=== PATIENT | male | born 1950 | race Caucasian/White ===

== ENCOUNTER 2016-04-12 09:20 | Outpatient (CLI) | payer MEDICARE, OTHER | END 2016-04-12 09:21 | disposition home or self-care (01) | DX: R74.8 Abnormal levels of other serum enzymes (principal); R73.9 Hyperglycemia, unspecified; E78.5 Hyperlipidemia, unspecified; E04.1 Nontoxic single thyroid nodule ==

== ENCOUNTER 2017-10-09 08:00 | Outpatient (CLI) | payer MEDICARE, OTHER ==
[2017-10-09 12:28] LABS: BASOPHILS # (AUTO) 0.1 10^3/uL (0.0-0.1); EOSINOPHILS # (AUTO) 0.2 10^3/uL (0.0-0.7); EOSINOPHILS % (AUTO) 4.3 %; LYMPHOCYTES # (AUTO) 1.4 10^3/uL (1.5-3.5); LYMPHOCYTES % (AUTO) 25.5 %; MEAN CORPUSCULAR VOLUME 90.9 fL (80.0-94.0); MEAN PLATELET VOLUME 9.6 fL (7.4-11.4); MONOCYTES # (AUTO) 0.4 10^3/uL (0.0-1.0); NEUTROPHILS # (AUTO) 3.4 10^3/uL (1.5-6.6); NEUTROPHILS % (AUTO) 61.2 %; PLT - PLATELET COUNT 235 10^3/uL (130-450); RED BLOOD COUNT 5.32 10^6/uL (4.70-6.10); RED CELL DISTRIBUTION WIDTH 14.1 % (12.0-15.0); WHITE BLOOD COUNT 5.5 x10^3/uL (4.8-10.8)
[2017-10-09 13:16] LABS: ALBUMIN/GLOBULIN RATIO 1.3 (1.0-2.2); ALKALINE PHOSPHATASE 49 IU/L (42-121); ALT ALANINE AMINOTRANSFERASE 31 IU/L (10-60); AST ASPARTATE AMINOTRANSFERASE 18 IU/L (10-42); BILIRUBIN,TOTAL 1.6 mg/dL (0.2-1.0); BUN - BLOOD UREA NITROGEN 18 mg/dL (6-20); CALCIUM 9.5 mg/dL (8.5-10.3); CARBON DIOXIDE - CO2 29 mmol/L (21-32); CHLORIDE 106 mmol/L (101-111); CHOL/HDL RATIO 5.1 (<5.0); CHOLESTEROL 239 mg/dL; CREATININE 0.8 mg/dL (0.6-1.2); GFR - MDRD 96 (>89); GLUCOSE 94 mg/dL (70-100); HDL CHOLESTEROL 47 mg/dL; LDL CHOLESTEROL,CALCULATED 165 mg/dL; LDL/HDL RATIO 3.5 (<3.6); SODIUM 140 mmol/L (135-145); TOTAL PROTEIN 7.2 g/dL (6.7-8.2); VLDL CHOLESTEROL 27 mg/dL
== END 2017-10-09 08:01 ==
LOC: LAB.WCP 08:00
PROVIDERS: ATTEND Physician Assistant
DX: I10 Essential (primary) hypertension (principal); Z12.5 Encounter for screening for malignant neoplasm of prostate; E78.5 Hyperlipidemia, unspecified
CPT/HCPCS: 36415; 80053; 80061; 85025; G0103; 83721; 84153

== ENCOUNTER 2017-10-21 08:00 | Outpatient (CLI) | payer MEDICARE, OTHER ==
[2017-10-21 19:59] LABS: PSA FREE 0.383 ng/mL (0.16-2.81); PSA TOTAL 3.162 ng/mL (0.000-2.000)
== END 2017-10-21 08:01 ==
LOC: LAB.WCP 08:00
PROVIDERS: ATTEND Physician Assistant
DX: R97.20 Elevated prostate specific antigen [PSA] (principal)
CPT/HCPCS: 36415; 84154

== ENCOUNTER 2018-04-24 14:29 | Outpatient (CLI) | payer MEDICARE, OTHER ==
--- NOTE | 2018-04-26 08:54 | XRAY Report ---
Reason: HIP PAIN Procedure Date: 04/24/2018 Accession Number: [id number] / [id number] Procedure: WCP - Hip 1 View LT CPT Code: FULL RESULT: EXAM: LEFT HIP RADIOGRAPHY EXAM DATE: 04/24/2018 02:46 PM. CLINICAL HISTORY: Left groin/hip pain after sledding injury. COMPARISON: ABDOMEN/PELVIS W/ 04/28/2013 5:56 PM. TECHNIQUE: 2 views. FINDINGS: Bones: Normal. No fractures or bone lesion. Joints: No dislocation. The hip joint space is preserved. There are degenerative disk changes of the partially visualized lower lumbar spine. Soft Tissues: Normal. No soft tissue swelling. There are multiple calcified phleboliths in the pelvis. IMPRESSION: No acute osseous abnormality of the left hip. RAD[facility]
== END 2018-04-24 14:30 | disposition home or self-care (01) ==
LOC: DI.WCP 14:29
PROVIDERS: ATTEND Nurse Practitioner
DX: M25.552 Pain in left hip (principal)

== ENCOUNTER 2018-05-01 14:17 | Outpatient (CLI) | payer MEDICARE, OTHER ==
--- NOTE | 2018-05-01 22:26 | CT Report ---
Reason: FRACTURE OF UNSPECIFIED PARTS, HIP JOINT PAIN, LEF Procedure Date: 05/01/2018 Accession Number: [id number] / [id number] Procedure: CT - PELVIS WO CPT Code: FULL RESULT: EXAM: CT BONY PELVIS WITHOUT CONTRAST EXAM DATE: 05/01/2018 02:30 PM. CLINICAL HISTORY: Left hip pain COMPARISON: Plain film 04/24/2018 HIP 1 VIEW LT 04/24/2018 2:35 PM. TECHNIQUE: Thin-section axial images were acquired of the pelvis without contrast. Post-processing: Coronal and sagittal reformats. Other: None. In accordance with CT protocol optimization, one or more of the following dose reduction techniques were utilized for this exam: automated exposure control, adjustment of mA and/or KV based on patient size, or use of iterative reconstructive technique. FINDINGS: Bones: No fracture or bone lesion. Sacroiliac Joints: No widening, erosions, or sclerosis. Symphysis Pubis: Unremarkable. Right Hip: Mild osteoarthritis. Left Hip: Mild osteoarthritis. Musculature: Normal. No fatty atrophy. Pelvic Cavity: Colonic diverticulosis, without CT evidence of diverticulitis. Other: No lymphadenopathy. No free air or free fluid. The other visualized soft tissues are unremarkable. IMPRESSION: Mild osteoarthritis. No evidence of fracture. [facility] ADDENDUM: 05/02/18 21:57 Films are reviewed. There are subtle nondisplaced fractures of the left superior and inferior pubic rami. No femoral fracture is identified.
== END 2018-05-01 14:18 | disposition home or self-care (01) ==
LOC: DI 14:17
PROVIDERS: ATTEND Nurse Practitioner
DX: S32.592A Other specified fracture of left pubis, initial encounter for closed fracture (principal); M16.11 Unilateral primary osteoarthritis, right hip
CPT/HCPCS: 72192

== ENCOUNTER 2018-06-05 09:48 | Outpatient (CLI) | payer MEDICARE, OTHER ==
--- NOTE | 2018-06-05 12:18 | XRAY Report ---
Reason: FRACTURE OF UNSP PARTS OF LYMBOSACRAL SPINE PELV Procedure Date: 06/05/2018 Accession Number: [id number] / [id number] Procedure: WCP - Pelvis 1 View CPT Code: FULL RESULT: EXAM: PELVIS RADIOGRAPHY EXAM DATE: 06/05/2018 10:01 AM. CLINICAL HISTORY: Fracture of unspecified parts of lumbosacral spine/pelvis. COMPARISON: HIP 1 VIEW LT 04/24/2018 2:35 PM PELVIS W/O 05/01/2018 2:31 PM. TECHNIQUE: 1 view. FINDINGS: Bones: There is a known superior pubic ramus and acetabular fracture on the left, this remains visible with periosteal reaction formation suggested in the region of the acetabulum. No other fractures. Joints: The visualized hip, pubis symphysis, and sacroiliac joints are congruent. No subluxation. Soft Tissues: Normal. No soft tissue swelling. IMPRESSION: Known fracture, acceptable alignment and suggestion of ongoing healing. [facility]
== END 2018-06-05 09:49 | disposition home or self-care (01) ==
LOC: DI.WCP 09:48
PROVIDERS: ATTEND Nurse Practitioner
DX: S32.592A Other specified fracture of left pubis, initial encounter for closed fracture (principal); S32.402A Unspecified fracture of left acetabulum, initial encounter for closed fracture
CPT/HCPCS: 72170

== ENCOUNTER 2019-12-08 05:07 | Emergency (ER) | payer MEDICARE, OTHER ==
--- NOTE | 2019-12-08 05:12 | ED Physician Documentation ---
History of Present Illness - Stated complaint Stated Complaint: HBP - History obtained from History obtained from: Patient - Additonal information Additional information: Patient is a 69-year-old male who is complaining of chest pain and shortness of breath and palpitations lightheadedness and diaphoresis. Also complaining of hypertension.Patient denies any history of OH or stroke or pulmonary embolism or DVT or any arrhythmias such as atrial fibrillation reports his symptoms started just prior to arrival. Review of Systems Constitutional: reports: Reviewed and negative Eyes: reports: Reviewed and negative Ears: reports: Reviewed and negative Nose: reports: Reviewed and negative Throat: reports: Reviewed and negative Cardiac: reports: Chest pain / pressure, Palpitations Respiratory: reports: Dyspnea GI: reports: Reviewed and negative : reports: Reviewed and negative Skin: reports: Reviewed and negative Musculoskeletal: reports: Reviewed and negative Neurologic: reports: Reviewed and negative Psychiatric: reports: Reviewed and negative Endocrine: reports: Reviewed and negative Immunocompromised: reports: Reviewed and negative PD PAST MEDICAL HISTORY - Past Medical History Cardiovascular: Hypertension, High cholesterol Respiratory: COPD Endocrine/Autoimmune: None GI: GERD, Colon polyps : None HEENT: None, Other Psych: None Musculoskeletal: Osteoarthritis Derm: None - Past Surgical History Past Surgical History: Yes HEENT: Other - Present Medications Home Medications: Ambulatory Orders Medication Instructions Recorded Confirmed Lisinopril 20 mg PO ONCEDAILY 04/27/13 12/08/19 Omeprazole [Prilosec] 20 mg PO ONCEDAILY 04/27/13 12/08/19 - Allergies Allergies/Adverse Reactions: Allergies Allergy/AdvReac Type Severity Reaction Status Date / Time Sulfa (Sulfonamide AdvReac Mild Itching Verified 12/08/19 05:33 Antibiotics) - Social History Does the pt smoke?: No Smoking Status: Never smoker Does the pt drink ETOH?: Yes PD ED PE NORMAL - Vitals Vital signs reviewed: Yes - General General: Alert and oriented X 3, Other (69-year-old male appears anxious but nontoxic and nonseptic appearing) - HEENT HEENT: Atraumatic, PERRL, EOMI, Ears normal, Moist mucous membranes, Pharynx benign - Neck Neck: Supple, no meningeal sign, No JVD - Cardiac Cardiac: No murmur, No gallop, No rub, Strong equal pulses, Other (Tachycardic, irregularly irregular) - Respiratory Respiratory: No respiratory distress, Clear bilaterally - Abdomen Abdomen: Normal bowel sounds, Soft, Non tender, Non distended, Other (No midline abdominal pulsatile mass) - Back Back: No CVA TTP, No spinal TTP - Derm Derm: Normal color, Warm and dry, No rash - Extremities Extremities: No deformity, No calf tenderness / cord - Neuro Neuro: Alert and oriented X 3, 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, No motor deficit, No sensory deficit, Normal speech - Psych Psych: Normal mood, Normal affect Results - Vitals Vitals: Vital Signs - 24 hr 12/08/19 12/08/19 12/08/19 05:15 05:43 05:50 Temperature 36.8 C 36.5 C Heart Rate 144 H 133 H 137 H Respiratory 21 24 24 Rate Blood Pressure 148/111 H 139/99 H 139/99 H O2 Saturation 94 96 96 12/08/19 12/08/19 12/08/19 05:51 05:52 05:55 Temperature Heart Rate 109 H 140 H 140 H Respiratory 12 14 16 Rate Blood Pressure 118/86 H 144/107 H O2 Saturation 97 94 12/08/19 12/08/19 12/08/19 05:57 06:08 06:31 Temperature Heart Rate 88 135 H 77 Respiratory 20 17 21 Rate Blood Pressure 147/117 H 135/109 H 139/92 H O2 Saturation 97 95 97 12/08/19 12/08/19 12/08/19 06:51 07:00 07:30 Temperature 36.4 C L Heart Rate 77 68 76 Respiratory 19 24 16 Rate Blood Pressure 132/90 H 124/89 H 120/90 H O2 Saturation 94 94 99 12/08/19 07:38 Temperature 36.8 C Heart Rate 76 Respiratory 16 Rate Blood Pressure 126/90 H O2 Saturation 100 Oxygen O2 Source Room air Oxygen Flow Rate 2 - EKG (time done) 05:22 Rate: Other (no stemi, atrial fibrillation) 05:56 Rate: Other (post Synchronized cardioversion, no STEMI, atrial fibrillation) 06:29 Rate: Other (Normal sinus rhythm, no STEMI) - Labs Labs: Laboratory Tests 12/08/19 12/08/19 12/08/19 05:23 05:23 05:23 WBC 6.1 RBC 5.77 Hgb 17.7 Hct 53.6 H MCV 92.9 MCH 30.7 MCHC 33.0 RDW 13.3 Plt Count 241 MPV 11.0 Neut # (Auto) 3.6 Lymph # (Auto) 1.8 Reagan # (Auto) 0.5 Eos # (Auto) 0.2 Baso # (Auto) 0.1 Absolute Nucleated RBC 0.00 Nucleated RBC % 0.0 PT INR APTT Sodium 141 Potassium 3.7 Chloride 107 Carbon Dioxide 23 Anion Gap 11.0 BUN 18 Creatinine 0.9 Estimated GFR (MDRD) 83 L Glucose 109 H Calcium 9.7 Total Bilirubin 1.6 H AST 19 ALT 28 Alkaline Phosphatase 51 Total Creatine Kinase Troponin I High Sens 6.3 B-Natriuretic Peptide Total Protein 7.4 Albumin 4.4 Globulin 3.0 Albumin/Globulin Ratio 1.5 Lipase 39 TSH Ethyl Alcohol 12/08/19 12/08/19 12/08/19 05:23 05:23 05:23 WBC RBC Hgb Hct MCV MCH MCHC RDW Plt Count MPV Neut # (Auto) Lymph # (Auto) Reagan # (Auto) Eos # (Auto) Baso # (Auto) Absolute Nucleated RBC Nucleated RBC % PT 11.6 INR 1.0 APTT 28.7 Sodium Potassium Chloride Carbon Dioxide Anion Gap BUN Creatinine Estimated GFR (MDRD) Glucose Calcium Total Bilirubin AST ALT Alkaline Phosphatase Total Creatine Kinase 67 Troponin I High Sens B-Natriuretic Peptide 103 H Total Protein Albumin Globulin Albumin/Globulin Ratio Lipase TSH Ethyl Alcohol < 5.0 12/08/19 05:23 WBC RBC Hgb Hct MCV MCH MCHC RDW Plt Count MPV Neut # (Auto) Lymph # (Auto) Reagan # (Auto) Eos # (Auto) Baso # (Auto) Absolute Nucleated RBC Nucleated RBC % PT INR APTT Sodium Potassium Chloride Carbon Dioxide Anion Gap BUN Creatinine Estimated GFR (MDRD) Glucose Calcium Total Bilirubin AST ALT Alkaline Phosphatase Total Creatine Kinase Troponin I High Sens B-Natriuretic Peptide Total Protein Albumin Globulin Albumin/Globulin Ratio Lipase TSH 1.95 Ethyl Alcohol Procedures - Procedural sedation Sedation prep: PE performed, ASA 2 - mild disease Sedation medications: fentanyl, versed Patient status during sedation: Responds to tactile, Vitals remained stable, Maintained airway, Recovered uneventfully Sedation recovery: Recovered uneventfully Time in sedation (Minutes): 15 - Cardioversion Attempt 1 Time of attempt: 05:00 Indication: Tachyarrhythmia, Chest pain Risks, benefits, alternatives explained to: Pt Prep: IV, O2, residential monitor, Pulse ox, Airway equip Meds: Fentanyl, Versed CS via: Pads Sync: Biphasic (120J) Post cardioversion rhythm: A-fib Performed by: ED MD Attempt 2 Time of attempt: 05:00 Indication: Tachyarrhythmia, Chest pain Risks, benefits, alternatives explained to: Pt Prep: IV, O2, residential monitor, Pulse ox, Airway equip Meds: Fentanyl, Versed Sync: Biphasic, 150j Post cardioversion rhythm: NSR Performed by: ED MD PD MEDICAL DECISION MAKING - ED course Complexity details: reviewed results, re-evaluated patient, considered differential, d/w patient ED course: 69-year-old male who presents with sudden and new onset atrial fibrillation symptomatic with chest pain and lightheadedness and diaphoresis verbal consent was Obtained from the patient for emergent synchronized cardioversion with sedation. The patient was sedated and cardioverted twice Patient successfully converted to normal sinus rhythm. Patient feels much better at this point. I recommended the patient be anticoagulated for the next 4 weeks. [id number] Score 2. shared discussion with patient regarding anticoagulation.Extensive conversation with the patient regards to anticoagulation he has follow-up with his primary care provider either today or tomorrow he does not want to be s tarted on anticoagulation. The patient has medical decision-making capability and capacity and assumes any possible adverse Affect such as stroke, permanent disability or cardiac arrest. The patient states he will follow up with his doctor today to discuss anticoagulation treatments. Patient states that he will take a baby aspirin daily. - Critical Care Time(min): 30 Time Includes: Direct patient care, Review records, Reassess patient, Document care, Coordinate care, Medical consult Data interpretation: Labs, CXR, Prior EKG Procedures included in critical care time: Peripheral IV (Synchronized cardioversion) Procedures excluded from critical care time: EKG Departure - Departure Disposition: 01 Home, Self Care Clinical Impression: Atrial fibrillation Qualifiers: Atrial fibrillation type: unspecified Qualified Code(s): I48.91 - Unspecified atrial fibrillation Condition: Stable Instructions: Atrial Fibrillation Dc, Hypertension Dc, ED Cardioversion Electrical Follow-Up: Orly Rapp ARNP, SENIOR BIOINFORMATICS SCIENTIST-C [Primary Care Provider] - 12/08/19 Comments: follow up with your pcp today. Discharge Date/Time: 12/08/19 07:39
[2019-12-08] MEDS ORDERED: MIDAZOLAM 2 MG/2 ML VIAL IVP STA (05:43)
[2019-12-08] MEDS ORDERED: fentaNYL 100 MCG/2 ML VIAL IVP STA (05:44)
[2019-12-08] MEDS ORDERED: fentaNYL 100 MCG/2 ML VIAL ONE (05:47)
[2019-12-08] MEDS ORDERED: MIDAZOLAM 2 MG/2 ML VIAL ONE (05:47)
[2019-12-08 06:01] LABS: BASOPHILS # (AUTO) 0.1 10^3/uL (0.0-0.1); BASOPHILS % (AUTO) 0.8 %; EOSINOPHILS # (AUTO) 0.2 10^3/uL (0.0-0.7); EOSINOPHILS % (AUTO) 3.3 %; HGB - HEMOGLOBIN 17.7 g/dL (14.0-18.0); LYMPHOCYTES # (AUTO) 1.8 10^3/uL (1.5-3.5); LYMPHOCYTES % (AUTO) 29.3 %; MEAN CORPUSCULAR HEMOGLOBIN 30.7 pg (27.0-31.0); MEAN CORPUSCULAR VOLUME 92.9 fL (80.0-94.0); MONOCYTES # (AUTO) 0.5 10^3/uL (0.0-1.0); MONOCYTES % (AUTO) 7.7 %; NEUTROPHILS # (AUTO) 3.6 10^3/uL (1.5-6.6); NEUTROPHILS % (AUTO) 58.7 %; PLT - PLATELET COUNT 241 10^3/uL (130-450); RED BLOOD COUNT 5.77 10^6/uL (4.70-6.10); RED CELL DISTRIBUTION WIDTH 13.3 % (12.0-15.0); WHITE BLOOD COUNT 6.1 x10^3/uL (4.8-10.8)
[2019-12-08 06:10] LABS: ALBUMIN 4.4 g/dL (3.2-5.5); ALBUMIN/GLOBULIN RATIO 1.5 (1.0-2.2); BILIRUBIN,TOTAL 1.6 mg/dL (0.2-1.0); CALCIUM 9.7 mg/dL (8.5-10.3); CREATININE 0.9 mg/dL (0.6-1.2); TOTAL PROTEIN 7.4 g/dL (6.7-8.2)
[2019-12-08] MEDS ORDERED: DILTIAZEM 125 MG in DEXTROSE 5% 100 ML IV STA (06:10)
[2019-12-08 06:20] LABS: PT - PROTHROMBIN TIME 11.6 secs (9.9-12.6)
[2019-12-08 06:27] LABS: PARTIAL THROMBOPLASTIN TIME 28.7 secs (24.9-33.3)
[2019-12-08 06:28] LABS: CK- CREATINE KINASE 67 IU/L (22-269)
[2019-12-08] MEDS ORDERED: DILTIAZEM 50 MG/10 ML VIAL ONE (06:29)
[2019-12-08 07:39] VITALS: BP 126/90
--- NOTE | 2019-12-08 08:02 | XRAY Report ---
PROCEDURE: Chest 1 View X-Ray INDICATIONS: Chest pain TECHNIQUE: One view of the chest was acquired. COMPARISON: 03/10/2015 FINDINGS: Surgical changes and devices: None. Lungs and pleura: No pleural effusions or pneumothorax. Lungs are clear. Mediastinum: Mediastinal contours appear normal. Heart size is normal. Bones and chest wall: No suspicious bony lesions. Overlying soft tissues appear unremarkable. IMPRESSION: No acute cardiopulmonary disease process. Reviewed by: Sonia Goff MD, PhD on 12/08/2019 8:01 AM PDT Approved by: Sonia Goff MD, PhD on 12/08/2019 8:01 AM PDT Station ID: [id number]
== END 2019-12-08 07:39 | disposition home or self-care (01) ==
LOC: ED 05:07
DX: I48.91 Unspecified atrial fibrillation (principal); I10 Essential (primary) hypertension; I25.2 Old myocardial infarction; R00.0 Tachycardia, unspecified; I49.8 Other specified cardiac arrhythmias
CPT/HCPCS: 36415; 71045; 80053; 80320; 82550; 83690; 83880; 84443; 84484; 85025; 85610; 85730; 92960; 93005; 94770; 99152

== ENCOUNTER 2019-12-09 11:11 | Emergency (ER) | payer MEDICARE, OTHER ==
--- NOTE | 2019-12-09 11:31 | ED Physician Documentation ---
PD HPI CHEST PAIN - Stated complaint Stated Complaint: AFIB - Chief complaint Chief Complaint: Cardiac - History obtained from History obtained from: Patient - Additional information Additional information: 69-year-old gentleman was seen here early yesterday for first episode of atrial fibrillation which he was cardioverted out of. He noted that his pulse was irregular at home today although he was not tachycardic and not feeling bad like he was when he was in atrial fibrillation previously. That had been his first episode of atrial fibrillation. There is no chest pain or trouble breathing. Review of Systems Cardiac: denies: Chest pain / pressure, Palpitations Respiratory: denies: Dyspnea, Cough GI: denies: Abdominal Pain PD PAST MEDICAL HISTORY - Past Medical History Cardiovascular: Hypertension, High cholesterol Respiratory: COPD Endocrine/Autoimmune: None GI: GERD, Colon polyps : None HEENT: None, Other Psych: None Musculoskeletal: Osteoarthritis Derm: None - Past Surgical History Past Surgical History: Yes HEENT: Other - Present Medications Home Medications: Ambulatory Orders Medication Instructions Recorded Confirmed Lisinopril 20 mg PO ONCEDAILY 04/27/13 12/08/19 Omeprazole [Prilosec] 20 mg PO ONCEDAILY 04/27/13 12/08/19 - Allergies Allergies/Adverse Reactions: Allergies Allergy/AdvReac Type Severity Reaction Status Date / Time Sulfa (Sulfonamide AdvReac Mild Itching Verified 12/09/19 11:14 Antibiotics) - Social History Does the pt smoke?: No Smoking Status: Never smoker Does the pt drink ETOH?: Yes PD ED PE NORMAL - Vitals Vital signs reviewed: Yes - General General: Alert and oriented X 3, No acute distress - Cardiac Cardiac: RRR (With occasional ectopy), No murmur - Respiratory Respiratory: No respiratory distress, Clear bilaterally - Abdomen Abdomen: Non tender - Back Back: No CVA TTP, No spinal TTP - Derm Derm: Normal color, Warm and dry - Extremities Extremities: No edema, No calf tenderness / cord - Neuro Neuro: Alert and oriented X 3, Normal speech Results - Vitals Vitals: Vital Signs - 24 hr 12/09/19 11:14 Temperature 36.7 C Heart Rate 73 Respiratory 18 Rate Blood Pressure 169/99 H O2 Saturation 95 Oxygen O2 Source Room air - EKG (time done) 1121 Rate: Rate (enter#) (67) Rhythm: NSR Pony: Normal Intervals: Normal OK QRS: Normal Ischemia: Normal ST segments Computer interpretation: Agree with computer PD MEDICAL DECISION MAKING - ED course ED course: On the monitor and on the EKG he is having very occasional premature atrial contractions which I suspect are where the cause of the irregularity that was noted at home. He is not back in atrial fibrillation. Discussed that he still need to follow-up as was previously recommended by the previous emergency physician but PACs alone would not constitute an urgent issue. Departure - Departure Disposition: 01 Home, Self Care Clinical Impression: PAC (premature atrial contraction) Condition: Good Record reviewed to determine appropriate education?: Yes Instructions: ED Palpitations Comments: Today you are not in atrial fibrillation, the irregularity you noted was probably from an occasional premature atrial contraction. Continue current medications and return if worse. Follow-up as recommended by the prior emergency physician. You should be taking a baby aspirin a day.
[2019-12-09 11:40] VITALS: BP 155/65
== END 2019-12-09 11:41 | disposition home or self-care (01) ==
LOC: ED 11:11
DX: I49.1 Atrial premature depolarization (principal); I48.91 Unspecified atrial fibrillation
CPT/HCPCS: 93005; 99283

== ENCOUNTER 2019-12-16 08:00 | Outpatient (CLI) | payer MEDICARE, OTHER ==
[2019-12-16 11:58] LABS: BASOPHILS # (AUTO) 0.1 10^3/uL (0.0-0.1); BASOPHILS % (AUTO) 1.1 %; EOSINOPHILS # (AUTO) 0.2 10^3/uL (0.0-0.7); EOSINOPHILS % (AUTO) 2.6 %; HGB - HEMOGLOBIN 16.4 g/dL (14.0-18.0); LYMPHOCYTES # (AUTO) 1.5 10^3/uL (1.5-3.5); LYMPHOCYTES % (AUTO) 26.5 %; MEAN CORPUSCULAR HEMOGLOBIN 30.3 pg (27.0-31.0); MEAN CORPUSCULAR HGB CONC 32.3 g/dL (32.0-36.0); MEAN CORPUSCULAR VOLUME 93.7 fL (80.0-94.0); MEAN PLATELET VOLUME 11.7 fL (7.4-11.4); MONOCYTES # (AUTO) 0.5 10^3/uL (0.0-1.0); MONOCYTES % (AUTO) 8.9 %; NEUTROPHILS # (AUTO) 3.5 10^3/uL (1.5-6.6); NEUTROPHILS % (AUTO) 60.7 %; PLT - PLATELET COUNT 233 10^3/uL (130-450); RED BLOOD COUNT 5.42 10^6/uL (4.70-6.10); RED CELL DISTRIBUTION WIDTH 13.5 % (12.0-15.0); WHITE BLOOD COUNT 5.7 x10^3/uL (4.8-10.8)
[2019-12-16 12:15] LABS: ALBUMIN 4.4 g/dL (3.2-5.5); ALBUMIN/GLOBULIN RATIO 1.6 (1.0-2.2); ALKALINE PHOSPHATASE 48 IU/L (42-121); ALT ALANINE AMINOTRANSFERASE 34 IU/L (10-60); AST ASPARTATE AMINOTRANSFERASE 19 IU/L (10-42); BILIRUBIN,TOTAL 2.1 mg/dL (0.2-1.0); BUN - BLOOD UREA NITROGEN 21 mg/dL (6-20); CALCIUM 9.6 mg/dL (8.5-10.3); CARBON DIOXIDE - CO2 23 mmol/L (21-32); CHLORIDE 108 mmol/L (101-111); CHOL/HDL RATIO 4.6 (<5.0); CHOLESTEROL 231 mg/dL; CREATININE 0.9 mg/dL (0.6-1.2); GLUCOSE 97 mg/dL (70-100); HDL CHOLESTEROL 50 mg/dL; LDL CHOLESTEROL,CALCULATED 160 mg/dL; LDL/HDL RATIO 3.2 (<3.6); SODIUM 141 mmol/L (135-145); TOTAL PROTEIN 7.2 g/dL (6.7-8.2); VLDL CHOLESTEROL 21 mg/dL
[2019-12-16 13:21] LABS: HEMOGLOBIN A1c% 5.1 % (4.27-6.07)
== END 2019-12-16 08:01 | disposition home or self-care (01) ==
LOC: LAB.WCP 08:00
PROVIDERS: ATTEND Nurse Practitioner
DX: R74.8 Abnormal levels of other serum enzymes (principal); R73.9 Hyperglycemia, unspecified; E78.5 Hyperlipidemia, unspecified; R97.20 Elevated prostate specific antigen [PSA]; E04.1 Nontoxic single thyroid nodule
CPT/HCPCS: 36415; 80053; 80061; 83036; 83721; 84153; 84443; 85025

== ENCOUNTER 2022-01-29 02:53 | Emergency (ER) | payer MEDICARE, OTHER ==
[2022-01-29 03:26] LABS: BASOPHILS # (AUTO) 0.1 10^3/uL (0.0-0.1); BASOPHILS % (AUTO) 0.8 %; EOSINOPHILS # (AUTO) 0.2 10^3/uL (0.0-0.7); EOSINOPHILS % (AUTO) 3.5 %; HGB - HEMOGLOBIN 15.1 g/dL (14.0-18.0); LYMPHOCYTES # (AUTO) 1.5 10^3/uL (1.5-3.5); LYMPHOCYTES % (AUTO) 23.1 %; MEAN CORPUSCULAR HEMOGLOBIN 29.5 pg (27.0-31.0); MEAN CORPUSCULAR HGB CONC 32.1 g/dL (32.0-36.0); MEAN PLATELET VOLUME 10.6 fL (7.4-11.4); MONOCYTES # (AUTO) 0.5 10^3/uL (0.0-1.0); MONOCYTES % (AUTO) 8.3 %; NEUTROPHILS # (AUTO) 4.1 10^3/uL (1.5-6.6); NEUTROPHILS % (AUTO) 64.1 %; PLT - PLATELET COUNT 222 10^3/uL (130-450); RED BLOOD COUNT 5.11 10^6/uL (4.70-6.10); RED CELL DISTRIBUTION WIDTH 13.1 % (12.0-15.0); WHITE BLOOD COUNT 6.4 x10^3/uL (4.8-10.8)
[2022-01-29 03:41] LABS: ALBUMIN 3.7 g/dL (3.2-5.5); ALBUMIN/GLOBULIN RATIO 1.2 (1.0-2.2); CALCIUM 9.4 mg/dL (8.5-10.3); CREATININE 0.8 mg/dL (0.6-1.2); TOTAL PROTEIN 6.7 g/dL (6.7-8.2)
--- NOTE | 2022-01-29 05:19 | ED Physician Documentation ---
PD HPI CHEST PAIN - Stated complaint Stated Complaint: HIGH BP/CHEST DISCOMFORT - Chief complaint Chief Complaint: Cardiac - History obtained from History obtained from: Patient - History of Present Illness Timing - onset: Enter time (01:30), Today Timing - onset during: Sleep Timing - details: Abrupt onset Pain level now: 0 Quality: Tightness Location: Substernal Radiation: Other (no radiation) Improved by: Other (no ameliorating factors) Worsened by: Other (no exacerbating factors) Associated symptoms: Palpitations. No: Shortness of air, Diaphoresis, Nausea, Vomiting, Feeling faint / dizzy, General Weakness Similar symptoms before: Diagnosis (similar to previous episode of atrial fibrillation) Recently seen: Not recently seen - Additional information Additional information: woke from sleep at 1:30 AM this morning with vague chest discomfort which he initially describes as tightness but then says it's hard to describe and more of a "hollow" feeling. He has mild palpitations and noted on his home blood pressure cuff that his heart rhythm was irregular (blood pressure also would not read despite multiple tries). Patient had similar symptoms for which he was evaluated in this ED November 2019, found to be in new onset atrial fibrillation, successfully electr ocardioverted in ED. Has not had episodes of these symptoms since that time Review of Systems Cardiac: reports: Chest pain / pressure, Palpitations. denies: Pedal edema, Calf pain Respiratory: reports: Reviewed and negative GI: reports: Reviewed and negative PD PAST MEDICAL HISTORY - Past Medical History Past Medical History: Yes Cardiovascular: Hypertension, High cholesterol Respiratory: COPD Neuro: None Endocrine/Autoimmune: None GI: GERD, Colon polyps : None HEENT: None, Other Psych: None Musculoskeletal: Osteoarthritis Derm: None - Past Surgical History Past Surgical History: Yes HEENT: Other - Present Medications Home Medications: Ambulatory Orders Medication Instructions Recorded Confirmed Lisinopril 20 mg PO ONCEDAILY 04/27/13 12/08/19 Omeprazole [Prilosec] 20 mg PO ONCEDAILY 04/27/13 12/08/19 - Allergies Allergies/Adverse Reactions: Allergies Allergy/AdvReac Type Severity Reaction Status Date / Time Sulfa (Sulfonamide AdvReac Mild Itching Verified 12/09/19 11:14 Antibiotics) - Social History Does the pt smoke?: No Smoking Status: Never smoker Does the pt drink ETOH?: Yes Does the pt have substance abuse?: No - Immunizations Immunizations are current?: Yes - POLST Patient has POLST: No PD ED PE NORMAL - Vitals Vital signs reviewed: Yes - General General: Alert and oriented X 3, No acute distress, Well developed/nourished - Cardiac Cardiac: No murmur - Respiratory Respiratory: No respiratory distress, Clear bilaterally - Abdomen Abdomen: Soft, Non tender - Derm Derm: Normal color, Warm and dry - Extremities Extremities: No edema PD ED PE EXPANDED - Cardiac Cardiac: Tachy, Irregularly irregular Results - Vitals Vitals: Oxygen O2 Source Room air - EKG (time done) No standard instances Rate: Rate (enter#) (109) Rhythm: Atrial fibrillation [place]: LAD Ischemia: Q waves (III, aVF) - Labs Labs: Laboratory Tests 01/29/22 01/29/22 01/29/22 03:15 03:15 03:15 WBC 6.4 RBC 5.11 Hgb 15.1 Hct 47.0 MCV 92.0 MCH 29.5 MCHC 32.1 RDW 13.1 Plt Count 222 MPV 10.6 Neut # (Auto) 4.1 Lymph # (Auto) 1.5 [place] # (Auto) 0.5 Eos # (Auto) 0.2 Baso # (Auto) 0.1 Absolute Nucleated RBC 0.00 Nucleated RBC % 0.0 Sodium 141 Potassium 4.0 Chloride 108 Carbon Dioxide 25 Anion Gap 8.0 BUN 18 Creatinine 0.8 Estimated GFR (MDRD) 95 Glucose 111 H Calcium 9.4 Total Bilirubin 1.0 AST 33 ALT 47 Alkaline Phosphatase 62 Troponin I High Sens 6.5 Total Protein 6.7 Albumin 3.7 Globulin 3.0 Albumin/Globulin Ratio 1.2 Lipase 40 - Rads (name of study) chest xray Radiology: Prelim report reviewed, See rad report Procedures - Cardioversion Attempt 1 Indication: Tachyarrhythmia Risks, benefits, alternatives explained to: Pt Prep: IV, O2, security monitor, Pulse ox, Airway equip Meds: Fentanyl CS via: Paddles, AP approach Sync: Biphasic, 150j Post cardioversion rhythm: NSR Complications: Other (none) Performed by: ED MD MEDICAL DECISION MAKING - ED course Complexity details: reviewed old records, reviewed results, re-evaluated patient, considered differential, d/w patient Departure - Departure Disposition: 01 Home, Self Care Clinical Impression: Atrial fibrillation Qualifiers: Atrial fibrillation type: paroxysmal Qualified Code(s): I48.0 - Paroxysmal atrial fibrillation Condition: Good Instructions: ED Afib, ED Sedation Procedural Discon Comments: The results of the blood tests were unremarkable, including a cardiac enzyme test. You were in atrial fibrillation but the procedure (cardioversion) worked and you are in a normal rhythm after the procedure. Continue your current medications (no change at this time in your prescriptions). Discharge Date/Time: 01/29/22 09:03
[2022-01-29] MEDS ORDERED: diltiaZEM INJ 5 MG/ML VIAL IVP STA (05:38)
[2022-01-29] MEDS ORDERED: PROPOFOL 200 MG/20 ML VIAL IVP STA (07:00)
[2022-01-29] MEDS ORDERED: fentaNYL 100 MCG/2 ML VIAL IVP STA (07:05)
--- NOTE | 2022-01-29 07:28 | XRAY Report ---
PROCEDURE: Chest 1 View X-Ray INDICATIONS: Chest pain TECHNIQUE: One view of the chest was acquired. COMPARISON: 12/08/2019 FINDINGS: Surgical changes and devices: None. Lungs and pleura: No pleural effusions or pneumothorax. Subtle left upper lobe airspace opacity. No focal consolidation. Mediastinum: Mediastinal contours appear normal. Heart size is normal. Bones and chest wall: No suspicious bony lesions. Overlying soft tissues appear unremarkable. IMPRESSION: Possible subtle airspace opacity in the left upper lung zone which may represent early developing air space disease/pneumonia. Recommend follow-up chest radiograph 4-6 weeks after treatment to document resolution of findings and /or return to baseline exam. No significant discrepancy with initial interpretation by overnight radiologist. Reviewed by: Skip Alston MD on 01/29/2022 7:26 AM PST Approved by: Skip Alston MD on 01/29/2022 7:26 AM [facility] Station ID: [id number]
[2022-01-29 09:03] VITALS: BP 114/83
== END 2022-01-29 09:03 | disposition home or self-care (01) ==
LOC: ED 02:53
DX: I48.0 Paroxysmal atrial fibrillation (principal)
CPT/HCPCS: 36415; 80053; 83690; 84484; 85025; 92960; 93005; 94770; 99152; 99284

== ENCOUNTER 2022-02-10 08:27 | Emergency (ER) | payer MEDICARE, OTHER ==
--- NOTE | 2022-02-10 08:44 | ED Physician Documentation ---
PD HPI CHEST PAIN - Stated complaint Stated Complaint: CHEST TIGHT/IRREGULAR HR - Chief complaint Chief Complaint: Cardiac - History obtained from History obtained from: Patient - History of Present Illness Timing - onset: How many hours ago (1-2), Today Timing - onset during: Rest (awakened this moring by feeling of heart racing and feeling uncomfortable. not pain per se. No dyspnea nor lightheaded. Has had similar with fast atrial fib episodes twice in the past; 2 years ago and few weeks ago. Cardioverted both times. Is on Carvedilol 3.125 mg - 3 tabs BID (so 9.375 mg bID).) Timing - duration: Hours (1-2) Timing - details: Abrupt onset, Still present Quality: Pressure, Tightness. No: Aching, Pain Location: Substernal Radiation: No: Jaw, Neck, Back Improved by: No: Rest Worsened by: No: Inspiration, Movement, Palpation Associated symptoms: General Weakness, Palpitations. No: Shortness of air, Nausea, Feeling faint / dizzy Similar symptoms before: Diagnosis (paroxysmal atrial fib with 2 episodes in the past.) Recently seen: Emergency Dept (2-3 weeks ago with similar and had cardioversion successfully. Seen PMD and had carvedilol increased from 6.25 to 9.375 mg BID. Also with recent amlodipine BP med Rx.) Review of Systems Constitutional: denies: Fever, Chills Nose: denies: Rhinorrhea / runny nose, Congestion Throat: denies: Sore throat Cardiac: reports: Chest pain / pressure (none with typical daily exertion and exercise.), Palpitations. denies: Pedal edema, Calf pain Respiratory: denies: Cough PD PAST MEDICAL HISTORY - Past Medical History Cardiovascular: Hypertension, High cholesterol Respiratory: COPD Neuro: None Endocrine/Autoimmune: None GI: GERD, Colon polyps : None HEENT: None, Other Psych: None Musculoskeletal: Osteoarthritis Derm: None - Past Surgical History Past Surgical History: Yes HEENT: Other - Present Medications Home Medications: Ambulatory Orders Medication Instructions Recorded Confirmed Omeprazole [Prilosec] 20 mg PO DAILY 04/27/13 02/10/22 Amlodipine Besylate [Norvasc] 10 mg PO DAILY 02/10/22 02/10/22 Aspirin EC [Ecotrin] 81 mg PO DAILY 02/10/22 02/10/22 Atorvastatin [Lipitor] 10 mg ORAL HS 02/10/22 02/10/22 Latanoprost/Pf [Latanoprost 0.005% 7.5 ml OP DAILY 02/10/22 02/10/22 Eye Drop] carvediloL [Coreg] 3 tab PO BID 02/10/22 02/10/22 - Allergies Allergies/Adverse Reactions: Allergies Allergy/AdvReac Type Severity Reaction Status Date / Time Sulfa (Sulfonamide AdvReac Mild Itching Verified 02/10/22 08:33 Antibiotics) - Living Situation Living Situation: reports: With family Living Arrangement: reports: At home - Social History Does the pt smoke?: No Smoking Status: Never smoker Does the pt drink ETOH?: Yes ETOH Use: Other (occasional drink) Does the pt have substance abuse?: No - Immunizations Immunizations are current?: Yes - POLST Patient has POLST: No PD ED PE NORMAL - Vitals Vital signs reviewed: Yes - General General: Alert and oriented X 3, No acute distress, Well developed/nourished - Neck Neck: Supple, no meningeal sign, No adenopathy, No JVD - Cardiac Cardiac: No murmur. No: RRR (irregular and tachycardic at 140s. ) - Respiratory Respiratory: No respiratory distress, Clear bilaterally - Derm Derm: Normal color, Warm and dry - Extremities Extremities: Normal ROM s pain, No edema, No calf tenderness / cord - Neuro Neuro: Alert and oriented X 3, No motor deficit, No sensory deficit, Normal speech Results - Vitals Vitals: Vital Signs - 24 hr 02/10/22 02/10/22 02/10/22 08:31 09:06 10:00 Temperature 36.6 C Heart Rate 142 H 108 H 100 Respiratory 16 20 18 Rate Blood Pressure 159/135 H 112/90 H 123/89 H O2 Saturation 100 97 96 If not protocol 2 : Oxygen Flow, liters/minute 02/10/22 02/10/22 02/10/22 10:40 10:48 10:53 Temperature Heart Rate 115 H 69 70 Respiratory 24 22 16 Rate Blood Pressure 131/87 H 130/78 125/85 H O2 Saturation 96 97 97 If not protocol : Oxygen Flow, liters/minute 02/10/22 02/10/22 02/10/22 10:56 11:03 11:39 Temperature Heart Rate 124 H 63 56 L Respiratory 17 14 20 Rate Blood Pressure 124/89 H 134/84 H O2 Saturation 96 99 If not protocol : Oxygen Flow, liters/minute Oxygen O2 Source Room air - EKG (time done) 08:35 Rate: Rate (enter#) (104) Rhythm: Atrial fibrillation Ischemia: Normal ST segments. No: ST elevation c/w ischemia, ST depression 10:50 Rate: Rate (enter#) (65) Rhythm: NSR [place]: Normal Intervals: Normal NM QRS: Normal Ischemia: Normal ST segments. No: ST elevation c/w ischemia, ST depression - Labs Labs: Laboratory Tests 02/10/22 02/10/22 02/10/22 09:00 09:00 09:00 WBC 4.9 RBC 5.39 Hgb 16.0 Hct 50.2 MCV 93.1 MCH 29.7 MCHC 31.9 L RDW 13.4 Plt Count 206 MPV 10.8 Neut # (Auto) 3.0 Lymph # (Auto) 1.2 L [place] # (Auto) 0.5 Eos # (Auto) 0.2 Baso # (Auto) 0.1 Absolute Nucleated RBC 0.00 Nucleated RBC % 0.0 Sodium 140 Potassium 4.0 Chloride 106 Carbon Dioxide 25 Anion Gap 9.0 BUN 15 Creatinine 0.7 Estimated GFR (MDRD) 111 Glucose 116 H Calcium 9.5 Magnesium 1.9 Total Bilirubin 2.0 H AST 22 ALT 33 Alkaline Phosphatase 60 Total Protein 6.9 Albumin 4.1 Globulin 2.8 Albumin/Globulin Ratio 1.5 Lipase 34 TSH 0.81 Procedures - Cardioversion Attempt 1 Indication: Tachyarrhythmia Risks, benefits, alternatives explained to: Pt Prep: IV, O2, electronic device monitor, Pulse ox, Airway equip CS via: Pads, AP approach Sync: Biphasic, 150j Post cardioversion rhythm: NSR Performed by: ED MD [facility] DECISION MAKING - ED course Complexity details: reviewed old records, re-evaluated patient, considered differential, d/w patient - Critical Care Time(min): 30 Time Includes: Direct patient care, Reassess patient, Document care, Medical consult Data interpretation: Labs Procedures excluded from critical care time: EKG Departure - Departure Disposition: Home, Self Care Clinical Impression: Paroxysmal atrial fibrillation with rapid ventricular response Condition: Stable Record reviewed to determine appropriate education?: Yes Instructions: ED Afib, ED Cardioversion Electrical Follow-Up: Yosi Goss MD [Provider Admit Priv/Credential] - Comments: Rest today without too much vigorous activity. Stay well-hydrated. I would suggest increasing your carvedilol 3.125 mg tablets from 3 tablets twice daily to a new dose of 4 tablets twice daily. This will be a total dose of 12.5 mg twice daily. Check your blood pressure morning and evening daily for the next 5 or 6 days. Be in contact with your primary care midweek and advise how your blood pressure and heart rate are doing. At that point they can decide whether to continue with the 12.5 mg dosing or not. In the meantime I would hold your amlodipine blood pressure medicine until we see how your blood pressure does with the above increased dose. If you find your heart rate is below 50 or blood pressure is low, then revert to the prior carvedilol dose. Discharge Date/Time: 02/10/22 11:55
[2022-02-10] MEDS ORDERED: METOPROLOL 5 MG/5 ML VIAL IVP STA (09:06)
[2022-02-10 09:23] LABS: BASOPHILS # (AUTO) 0.1 10^3/uL (0.0-0.1); EOSINOPHILS # (AUTO) 0.2 10^3/uL (0.0-0.7); EOSINOPHILS % (AUTO) 3.4 %; HCT - HEMATOCRIT 50.2 % (42.0-52.0); LYMPHOCYTES # (AUTO) 1.2 10^3/uL (1.5-3.5); LYMPHOCYTES % (AUTO) 24.3 %; MEAN CORPUSCULAR HEMOGLOBIN 29.7 pg (27.0-31.0); MEAN CORPUSCULAR HGB CONC 31.9 g/dL (32.0-36.0); MEAN CORPUSCULAR VOLUME 93.1 fL (80.0-94.0); MEAN PLATELET VOLUME 10.8 fL (7.4-11.4); MONOCYTES # (AUTO) 0.5 10^3/uL (0.0-1.0); MONOCYTES % (AUTO) 9.5 %; NEUTROPHILS % (AUTO) 61.6 %; PLT - PLATELET COUNT 206 10^3/uL (130-450); RED BLOOD COUNT 5.39 10^6/uL (4.70-6.10); RED CELL DISTRIBUTION WIDTH 13.4 % (12.0-15.0); WHITE BLOOD COUNT 4.9 x10^3/uL (4.8-10.8)
[2022-02-10 09:33] LABS: ALBUMIN 4.1 g/dL (3.2-5.5); ALBUMIN/GLOBULIN RATIO 1.5 (1.0-2.2); CALCIUM 9.5 mg/dL (8.5-10.3); CREATININE 0.7 mg/dL (0.6-1.2); MAGNESIUM 1.9 mg/dL (1.7-2.8); TOTAL PROTEIN 6.9 g/dL (6.7-8.2)
[2022-02-10] MEDS ORDERED: PROPOFOL 200 MG/20 ML VIAL IVP STA (09:57)
[2022-02-10 11:40] VITALS: BP 134/84
== END 2022-02-10 11:55 | disposition home or self-care (01) ==
LOC: ED 08:27
DX: I48.0 Paroxysmal atrial fibrillation (principal)
CPT/HCPCS: 36415; 80053; 83690; 83735; 84443; 85025; 92960; 93005; 94770; 99152; 99291

== ENCOUNTER 2022-02-19 07:43 | Emergency (ER) | payer MEDICARE, OTHER ==
[2022-02-19 08:15] LABS: BASOPHILS # (AUTO) 0.1 10^3/uL (0.0-0.1); BASOPHILS % (AUTO) 0.9 %; EOSINOPHILS # (AUTO) 0.2 10^3/uL (0.0-0.7); EOSINOPHILS % (AUTO) 3.6 %; HCT - HEMATOCRIT 48.3 % (42.0-52.0); HGB - HEMOGLOBIN 15.5 g/dL (14.0-18.0); LYMPHOCYTES # (AUTO) 1.3 10^3/uL (1.5-3.5); LYMPHOCYTES % (AUTO) 23.7 %; MEAN CORPUSCULAR HEMOGLOBIN 30.3 pg (27.0-31.0); MEAN CORPUSCULAR HGB CONC 32.1 g/dL (32.0-36.0); MEAN CORPUSCULAR VOLUME 94.5 fL (80.0-94.0); MEAN PLATELET VOLUME 10.7 fL (7.4-11.4); MONOCYTES # (AUTO) 0.5 10^3/uL (0.0-1.0); MONOCYTES % (AUTO) 9.3 %; NEUTROPHILS # (AUTO) 3.3 10^3/uL (1.5-6.6); NEUTROPHILS % (AUTO) 62.3 %; PLT - PLATELET COUNT 192 10^3/uL (130-450); RED BLOOD COUNT 5.11 10^6/uL (4.70-6.10); RED CELL DISTRIBUTION WIDTH 13.2 % (12.0-15.0); WHITE BLOOD COUNT 5.4 x10^3/uL (4.8-10.8)
--- NOTE | 2022-02-19 08:17 | XRAY Report ---
PROCEDURE: Chest 1 View X-Ray INDICATIONS: Chest pain TECHNIQUE: One view of the chest was acquired. COMPARISON: 01/29/2022 FINDINGS: Surgical changes and devices: None. Lungs and pleura: Minimal diffuse interstitial prominence. No focal consolidation. Streaky bibasilar opacities likely representing atelectasis. No pneumothorax. No substantial pleural effusion. Mediastinum: Mediastinal contours appear normal. Heart size is normal. Bones and chest wall: No suspicious bony lesions. Overlying soft tissues appear unremarkable. IMPRESSION: Minimal diffuse interstitial prominence without focal consolidation. Findings are nonspecific and may represent an infectious/inflammatory process versus early pulmonary edema/CHF. Reviewed by: Skip Alston MD on 02/19/2022 8:16 AM PST Approved by: Skip Alston MD on 02/19/2022 8:16 AM PST Station ID: [id number]
[2022-02-19] MEDS ORDERED: diltiaZEM INJ 5 MG/ML VIAL IVP STA (08:34)
[2022-02-19] MEDS ORDERED: SODIUM CHLORIDE 0.9% 500 ML IV STA (08:34)
[2022-02-19 08:35] LABS: ALBUMIN 4.1 g/dL (3.2-5.5); ALBUMIN/GLOBULIN RATIO 1.5 (1.0-2.2); BILIRUBIN,TOTAL 1.8 mg/dL (0.2-1.0); CALCIUM 9.4 mg/dL (8.5-10.3); CREATININE 0.9 mg/dL (0.6-1.2); POTASSIUM 3.8 mmol/L (3.5-5.0); TOTAL PROTEIN 6.9 g/dL (6.7-8.2)
--- NOTE | 2022-02-19 11:04 | ED Physician Documentation ---
History of Present Illness - Stated complaint Stated Complaint: HIGH BP/HEART PALP - Chief complaint Chief Complaint: Cardiac - History obtained from History obtained from: Patient - Additonal information Additional information: Patient is a 71-year-old male with a history of atrial fibrillation presenting for evaluation of feeling jittery and feeling that his heart is racing starting when he woke up this morning.Patient is on carvedilol for atrial fibrillation and takes a baby aspirin. He does not take other anticoagulation As Eliquis and Xarelto were too expensive. He has considered warfarin. He was cardioverted 1 week ago For his atrial fibrillation and had adjustments made to his carvedilol. He has taken his morning medications. He denies dizziness, chest pain, difficulty breathing, abdominal pain, vomiting. Review of Systems Constitutional: denies: Fever Nose: denies: Congestion Cardiac: denies: Chest pain / pressure Respiratory: denies: Dyspnea, Cough GI: denies: Abdominal Pain, Vomiting : denies: Dysuria Musculoskeletal: denies: Back pain Neurologic: denies: Headache PD PAST MEDICAL HISTORY - Past Medical History Past Medical History: Yes Cardiovascular: Hypertension, High cholesterol Respiratory: COPD Neuro: None Endocrine/Autoimmune: None GI: GERD, Colon polyps : None HEENT: None, Other Psych: None Musculoskeletal: Osteoarthritis Derm: None - Past Surgical History Past Surgical History: Yes Ortho: Rotator cuff repair HEENT: Other - Present Medications Home Medications: Ambulatory Orders Medication Instructions Recorded Confirmed Omeprazole [Prilosec] 20 mg PO DAILY 04/27/13 02/10/22 Amlodipine Besylate [Norvasc] 10 mg PO DAILY 02/10/22 02/10/22 Aspirin EC [Ecotrin] 81 mg PO DAILY 02/10/22 02/10/22 Atorvastatin [Lipitor] 10 mg ORAL HS 02/10/22 02/10/22 Latanoprost/Pf [Latanoprost 0.005% 7.5 ml OP DAILY 02/10/22 02/10/22 Eye Drop] carvediloL [Coreg] 3 tab PO BID 02/10/22 02/10/22 - Allergies Allergies/Adverse Reactions: Allergies Allergy/AdvReac Type Severity Reaction Status Date / Time Sulfa (Sulfonamide AdvReac Mild Itching Verified 02/10/22 08:33 Antibiotics) - Social History Does the pt smoke?: No Smoking Status: Never smoker Does the pt drink ETOH?: Yes Does the pt have substance abuse?: No - Immunizations Immunizations are current?: Yes - POLST Patient has POLST: No PD ED PE NORMAL - General General: Alert and oriented X 3, No acute distress, Well developed/nourished - HEENT HEENT: Atraumatic - Neck Neck: Supple, no meningeal sign - Cardiac Cardiac: Other (Irregularly irregular, tachycardic) - Respiratory Respiratory: No respiratory distress, Clear bilaterally - Abdomen Abdomen: Soft, Non tender, Non distended - Derm Derm: Warm and dry - Extremities Extremities: No edema, No calf tenderness / cord - Neuro Neuro: Alert and oriented X 3, No motor deficit, Normal speech Results - Vitals Vitals: Vital Signs - 24 hr 02/19/22 02/19/22 02/19/22 07:57 08:24 08:46 Temperature 36.6 C Heart Rate 105 H 106 H 113 H Respiratory 18 18 18 Rate Blood Pressure 114/90 H 130/99 H 120/95 H O2 Saturation 98 98 96 02/19/22 02/19/22 02/19/22 09:00 09:30 10:00 Temperature Heart Rate 78 74 99 Respiratory 19 19 20 Rate Blood Pressure 116/74 129/97 H 123/81 H O2 Saturation 94 96 98 02/19/22 02/19/22 10:30 11:08 Temperature 97.7 C H Heart Rate 83 99 Respiratory 12 12 Rate Blood Pressure 133/97 H 120/89 H O2 Saturation 98 98 Oxygen O2 Source Room air - EKG (time done) 0756 Rate: Rate (enter#) (115) Rhythm: Atrial fibrillation [place]: Normal Ischemia: No: ST elevation c/w ischemia - Labs Labs: Laboratory Tests 02/19/22 02/19/22 02/19/22 08:09 08:09 08:09 WBC 5.4 RBC 5.11 Hgb 15.5 Hct 48.3 MCV 94.5 H MCH 30.3 MCHC 32.1 RDW 13.2 Plt Count 192 MPV 10.7 Neut # (Auto) 3.3 Lymph # (Auto) 1.3 L [place] # (Auto) 0.5 Eos # (Auto) 0.2 Baso # (Auto) 0.1 Absolute Nucleated RBC 0.00 Nucleated RBC % 0.0 Sodium 142 Potassium 3.8 Chloride 107 Carbon Dioxide 28 Anion Gap 7.0 BUN 13 Creatinine 0.9 Estimated GFR (MDRD) 83 L Glucose 111 H Calcium 9.4 Total Bilirubin 1.8 H AST 21 ALT 33 Alkaline Phosphatase 54 Troponin I High Sens 5.8 Total Protein 6.9 Albumin 4.1 Globulin 2.8 Albumin/Globulin Ratio 1.5 Lipase 35 PD MEDICAL DECISION MAKING - ED course Complexity details: reviewed results, re-evaluated patient, d/w patient ED course: Patient presenting for evaluation of atrial fibrillation. He has recently been cardioverted.He does appear to be in A. fib here with mild elevation in his heart rate. His symptoms are relatively mild. He did respond to a dose of Cardizem and IV fluids. He remained in A. fib but was rate controlled. He has a follow-up appointment with his PCP tomorrow. He Was advised that he should have a cardiology referral and may need a cardiac ablation or Further adjustment of his medication.He was advised on strict return precautions. He was able to ambulate to the restroom without any difficulty And without any symptoms. Departure - Departure Disposition: 01 Home, Self Care Clinical Impression: Chronic atrial fibrillation Condition: Stable Instructions: ED Afib Comments: You have an abnormal rhythm called atrial fibrillation. At this time your symptoms are very mild and your heart rate is controlled. Please continue with the carvedilol as prescribed and follow-up with Dr. Goss as already scheduled tomorrow morning. You may benefit from seeing a coal inspector or having a procedure called an ablation to help with these episodes of atrial fibrillation.Please continue to think about anticoagulation as atrial fibrillation does put you at a risk of stroke Or clots in your lungs. If you have any worsening symptoms such as chest pain, difficulty breathing, feel lightheaded or dizzy please return to the ER. Discharge Date/Time: 02/19/22 11:10
[2022-02-19 11:09] VITALS: BP 120/89
== END 2022-02-19 11:10 | disposition home or self-care (01) ==
LOC: ED 07:43
DX: I48.20 Chronic atrial fibrillation, unspecified (principal); I10 Essential (primary) hypertension; J44.9 Chronic obstructive pulmonary disease, unspecified; Z79.82 Long term (current) use of aspirin
CPT/HCPCS: 36415; 80053; 83690; 84484; 85025; 93005; 96374; 99282

== ENCOUNTER 2022-02-26 09:36 | Outpatient (CLI) | payer MEDICARE, OTHER ==
[2022-02-26 12:01] LABS: BASOPHILS # (AUTO) 0.1 10^3/uL (0.0-0.1); BASOPHILS % (AUTO) 1.2 %; EOSINOPHILS # (AUTO) 0.2 10^3/uL (0.0-0.7); HCT - HEMATOCRIT 46.5 % (42.0-52.0); HGB - HEMOGLOBIN 14.8 g/dL (14.0-18.0); LYMPHOCYTES # (AUTO) 1.1 10^3/uL (1.5-3.5); LYMPHOCYTES % (AUTO) 22.2 %; MEAN CORPUSCULAR HGB CONC 31.8 g/dL (32.0-36.0); MEAN CORPUSCULAR VOLUME 94.3 fL (80.0-94.0); MONOCYTES # (AUTO) 0.5 10^3/uL (0.0-1.0); MONOCYTES % (AUTO) 10.7 %; NEUTROPHILS # (AUTO) 3.1 10^3/uL (1.5-6.6); NEUTROPHILS % (AUTO) 61.7 %; PLT - PLATELET COUNT 191 10^3/uL (130-450); RED BLOOD COUNT 4.93 10^6/uL (4.70-6.10); RED CELL DISTRIBUTION WIDTH 13.3 % (12.0-15.0)
[2022-02-26 12:14] LABS: ALBUMIN/GLOBULIN RATIO 1.4 (1.0-2.2); ALKALINE PHOSPHATASE 52 IU/L (42-121); ALT ALANINE AMINOTRANSFERASE 35 IU/L (10-60); AST ASPARTATE AMINOTRANSFERASE 21 IU/L (10-42); BUN - BLOOD UREA NITROGEN 12 mg/dL (6-20); CALCIUM 9.4 mg/dL (8.5-10.3); CARBON DIOXIDE - CO2 25 mmol/L (21-32); CHLORIDE 107 mmol/L (101-111); CHOLESTEROL 146 mg/dL; CREATININE 0.6 mg/dL (0.6-1.2); GFR - MDRD 132 (>89); GLUCOSE 110 mg/dL (70-100); HDL CHOLESTEROL 49 mg/dL; LDL CHOLESTEROL,CALCULATED 81 mg/dL; LDL/HDL RATIO 1.7 (<3.6); POTASSIUM 4.3 mmol/L (3.5-5.0); SODIUM 139 mmol/L (135-145); TOTAL PROTEIN 6.8 g/dL (6.7-8.2); TRIGLYCERIDES 81 mg/dL; VLDL CHOLESTEROL 16 mg/dL
[2022-02-26 12:21] LABS: THYROID STIMULATING HORMONE 1.14 uIU/mL (0.34-5.60)
[2022-02-26 18:18] LABS: PSA TOTAL 1.992 ng/mL (0.000-2.000)
== END 2022-02-26 09:37 | disposition home or self-care (01) ==
LOC: LAB.N 09:36
PROVIDERS: ATTEND Family Medicine
DX: I48.91 Unspecified atrial fibrillation (principal); E78.5 Hyperlipidemia, unspecified; I10 Essential (primary) hypertension; R97.20 Elevated prostate specific antigen [PSA]
CPT/HCPCS: 36415; 80053; 80061; 83721; 84153; 84443; 85025

== ENCOUNTER 2022-03-02 10:10 | Outpatient (CLI) | payer MEDICARE, OTHER ==
[2022-03-02 10:44] LABS: INR > 10.0 (0.8-1.2)
== END 2022-03-02 10:11 | disposition home or self-care (01) ==
LOC: LAB 10:10
PROVIDERS: ATTEND Nurse Practitioner Family
DX: Z79.01 Long term (current) use of anticoagulants (principal); I48.91 Unspecified atrial fibrillation
CPT/HCPCS: 36415; 85610

== ENCOUNTER 2022-03-06 08:55 | Outpatient (CLI) | payer MEDICARE, OTHER | END 2022-03-06 08:56 | disposition home or self-care (01) | LOC: LAB 08:55 | PROVIDERS: ATTEND Nurse Practitioner Family | DX: Z79.01 Long term (current) use of anticoagulants (principal); I48.91 Unspecified atrial fibrillation | CPT/HCPCS: 36416; 85610 ==

== ENCOUNTER 2022-03-09 09:04 | Outpatient (CLI) | payer MEDICARE, OTHER | END 2022-03-09 09:05 | disposition home or self-care (01) | LOC: LAB 09:04 | PROVIDERS: ATTEND Nurse Practitioner Family | DX: Z79.01 Long term (current) use of anticoagulants (principal); I48.91 Unspecified atrial fibrillation | CPT/HCPCS: 36416; 85610 ==

== ENCOUNTER 2022-03-13 08:01 | Outpatient (CLI) | payer MEDICARE, OTHER | END 2022-03-13 08:02 | disposition home or self-care (01) | LOC: LAB 08:01 | PROVIDERS: ATTEND Nurse Practitioner Family | DX: Z79.01 Long term (current) use of anticoagulants (principal); I48.91 Unspecified atrial fibrillation | CPT/HCPCS: 36416; 85610 ==

== ENCOUNTER 2022-03-16 08:01 | Outpatient (CLI) | payer MEDICARE, OTHER | END 2022-03-16 08:02 | disposition home or self-care (01) | LOC: LAB 08:01 | PROVIDERS: ATTEND Nurse Practitioner Family | DX: I48.91 Unspecified atrial fibrillation (principal); Z79.01 Long term (current) use of anticoagulants | CPT/HCPCS: 36416; 85610 ==

== ENCOUNTER 2022-03-21 07:56 | Outpatient (CLI) | payer MEDICARE, OTHER | END 2022-03-21 07:57 | disposition home or self-care (01) | LOC: LAB 07:56 | PROVIDERS: ATTEND Nurse Practitioner Family | DX: Z79.01 Long term (current) use of anticoagulants (principal); I48.91 Unspecified atrial fibrillation | CPT/HCPCS: 36416; 85610 ==

== ENCOUNTER 2022-03-28 08:17 | Outpatient (CLI) | payer MEDICARE, OTHER | END 2022-03-28 08:18 | disposition home or self-care (01) | LOC: LAB 08:17 | PROVIDERS: ATTEND Nurse Practitioner Family | DX: Z79.01 Long term (current) use of anticoagulants (principal); I48.91 Unspecified atrial fibrillation | CPT/HCPCS: 36416; 85610 ==

== ENCOUNTER 2022-04-11 08:23 | Outpatient (CLI) | payer MEDICARE, OTHER | END 2022-04-11 08:24 | disposition home or self-care (01) | LOC: LAB 08:23 | PROVIDERS: ATTEND Nurse Practitioner Family | DX: Z79.01 Long term (current) use of anticoagulants (principal); I48.91 Unspecified atrial fibrillation | CPT/HCPCS: 36416; 85610 ==

== ENCOUNTER 2022-04-24 13:02 | Outpatient (CLI) | payer MEDICARE, OTHER ==
--- NOTE | 2022-04-24 14:03 | SLEEP CARE CONSULTATION ---
Information from patient questionnaire entered by Naomie Avina. I have reviewed and concur with the information entered by Naomie Avina. This document represents the service I personally performed and the decisions made by me, Jeniffer Warren ARNP. History of Present Illness Service Date and Time: 04/24/2022 1302 Reason for Visit: New patient Chief Complaint: reports: Other (WAKING WITH ATRIAL FIBRILLATION ) Date of Onset: 01/2022 Usual bedtime: 10-1030PM Time it takes to fall asleep: VARIES LESS THAN AN HR Snores at night: No (DONT KNOW) Observed to quit breathing while asleep: No Sleeps alone due to snoring: No Number of times waking at night: 1 Reasons for waking at night: reports: Bathroom, Other (SEVERAL TIMES WITH AFIB). denies: Choking, Snoring, Gasping for air Toss, Turn, or Twitch while sleeping: No Recalls having dreams: No Usually gets out of bed at: 6-7AM Feels refreshed in the morning: Yes Morning headache: No Sleepy or fatigued during the day: No Ever fallen asleep while driving: No Takes day naps: No Dreams during day naps: No Prior sleep studies: No Additional HPI information: I had the pleasure of seeing JEFF DANGELO today regarding the possibility of him having a sleep disorder. His current complaint is that he wakes up with atrial fibrillation. He states that he has had afib since December 2021. He has been cardioverted twice and is scheduled to have an ablation in May 2022. He states that he lives alone. There is no one currently who can tell him if he snores or stops breathing at night. He has not woke up feeling like he is choking or gaspi ng for air. He ex- did used to tell him he would snore if he got really tired. He state he did have his nose broken and his right nostril seems smaller but he states he does not have difficulty breathing through his nose. He states that he takes melatonin 5 mg at night to help him go to sleep and will fall asleep within 20 minutes. 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 Patient is and lives in [place]. Have you smoked in the past 12 months: No Years of smokin Quit date: 2009 Alcohol use: Yes Alcohol amount and frequency: VERY LITTLE NOT MORE THAN ONCE IN 4-5MONTHS Caffeine use: No Family History Family history of sleep disordered breathing: No Allergies and Home Medications Known drug allergies: Yes (SULFA) Drug allergies reviewed: Yes Home medication list reviewed: Yes (see list in chart) Review of Systems Weight loss over past 5 years: 10 Cardiovascular: reports: high blood pressure, irregular heart rate or pulse, leg or foot swelling Gastrointestinal: reports: heartburn Urinary: reports: frequency Neurological: denies: headaches Psychiatric: denies: anxiety, depression Ear/Nose/Throat: reports: injury to nose. denies: tonsillectomy Musculoskeletal: reports: joint pain, back pain Immunologic: reports: sneezing, allergies to food or environment Physical Exam Vital signs obtained and entered by: NAOMIE Carter MA Blood Pressure: 132/82 (LEFT ARM) Cuff size: regular Heart Rate: 113 O2 Saturation: 97 Height: 5 ft 5 in Weight: 178 lb 12.8 oz Body Mass Index: 29.7 BMI Classification: Overweight Neck circumference: 16.5 Mouth and throat: narrow oropharynx Soft palate: long Hard palate: normal Uvula: normal Uvula visualization: 25% Mallampati Class III Tongue: normal in size Tonsils: 1+ Neck: normal w/o lymphadenopathy or thyromegaly Heart: irregular rhythm Lungs: clear bilaterally Impression and Plan 1. Suspected Obstructive Sleep Apnea-Hypopnea Syndrome, as suggested by a history of possible snoring, unrefreshed sleep and atrial fibrillation. Narrow oropharynx and obesity are common predisposing factors for obstructive sleep apnea-hypopnea syndrome. I recommend proceeding to polysomnography to confirm the diagnosis and to assess severity. If the patient has significant sleep disordered breathing, a manual CPAP titration study will also be performed to find the optimal treatment pressure. I informed the patient of what the sleep studies involve and after some discussion, obtained agreement to proceed. The pathophysiology of obstructive sleep apnea-hypopnea syndrome was discussed with the patient and health risks of cardiovascular and cerebrovascular disease if not treated. Risks of drowsy driving discussed in detail and patient advised to avoid long distance driving and to fur puller at the first sign of drowsiness. Patient agreed to plan. * Schedule polysomnography * Avoid long distance driving or driving when feeling sleepy. * Avoid alcohol, sedative and muscle relaxant around bedtime. * Attempt to lose weight. * Review instructions provided by trained office staff on how to prepare for the sleep study. * Return for follow-up after sleep study completed. Counseling Topics: Weight loss health impact Visit Type: In Office Time Spent with Patient (minutes): 31 Provider Statement: I spent 100% of the Face to Face Visit with the patient with greater than 50% spent counseling the patient and coordination of care.
[2022-04-24 14:04] VITALS: BP 132/82
== END 2022-04-24 13:03 | disposition home or self-care (01) ==
LOC: SC 13:02
PROVIDERS: ATTEND Nurse Practitioner Family
DX: I48.91 Unspecified atrial fibrillation (principal); G47.8 Other sleep disorders; E66.3 Overweight; Z68.29 Body mass index [BMI] 29.0-29.9, adult; Z87.891 Personal history of nicotine dependence
CPT/HCPCS: 99203; G0463; 99212

== ENCOUNTER 2022-04-30 19:28 | Outpatient (CLI) | payer MEDICARE, OTHER | END 2022-04-30 19:29 | disposition home or self-care (01) | LOC: SC 19:28 | PROVIDERS: ATTEND Nurse Practitioner Family | DX: G47.31 Primary central sleep apnea (principal); I48.91 Unspecified atrial fibrillation; I10 Essential (primary) hypertension | CPT/HCPCS: 95810 ==

== ENCOUNTER 2022-05-09 08:15 | Outpatient (CLI) | payer MEDICARE, OTHER | END 2022-05-09 08:16 | disposition home or self-care (01) | LOC: LAB 08:15 | PROVIDERS: ATTEND Nurse Practitioner Family | DX: Z79.01 Long term (current) use of anticoagulants (principal); I48.91 Unspecified atrial fibrillation | CPT/HCPCS: 36416; 85610 ==

== ENCOUNTER 2022-05-18 15:02 | Outpatient (CLI) | payer MEDICARE, OTHER ==
--- NOTE | 2022-05-18 15:38 | SLEEP CARE CONSULTATION ---
Information from patient questionnaire entered by Randee Avina. I have reviewed and concur with the information entered by Randee Avina. This document represents the service I personally performed and the decisions made by , Jeniffer Warren ARNP. History of Present Illness Service Date and Time: 05/18/2022 1502 Initial [place] Sleepiness Scale score: 5 (04/15/22) Current [place] Sleepiness Scale score: 0 (05/18/22) Additional HPI information: JEFF DANGELO returns for follow up and results of the recently performed polysomnography. I explained the pathophysiology behind obstructive sleep apnea. We then spent quite a bit of time discussing different treatment options. For mild obstructive sleep apnea, surgery and oral appliance are alternatives to nasal CPAP therapy but in moderate or severe cases, nasal CPAP is the most effective and reliable treatment. I reviewed the impact of weight changes on sleep apnea and strongly recommended losing weight. I recommend we have him do a titration study to find optimal pressure setting and device needed to treat his central sleep apnea with Ayad-Deal respirations. Patient does not drink alcohol. Patient was cautioned about risks of drowsy driving until sleepiness symptoms r esolve. Patient denies drowsy driving. Sleep Study - Results Type of Sleep Study: Polysomnography (COMPLETED 04/30/22) Prior sleep studies: No Polysomnography/Home Sleep Study results: IMPRESSION: The quality of the study is good. The patient had slightly reduced sleep efficiency due to a few awakenings during the night. Despite moderate sleep fragmentation, the sleep architecture was relatively normal. Respiratory monitoring showed moderate central sleep apnea and Ayad-Deal respiration (AHI = 25.7) associated with frequent arousals, oxyhemoglobin desaturation and mild hypoxia ([place] oxygen saturation of 84%). The respiratory events occurred more frequently during supine sleep (supine AHI = 99.2; non-supine = 23.42). Snore was infrequent and light in intensity. There was no significant periodic leg movement of sleep. Cardiac rhythm was atrial fibrillation. No abnormal behavior (parasomnia) observed during the night. Allergies and Home Medications Known drug allergies: Yes (felodipine, azilsartan, morphine, sulfa) Drug allergies reviewed: Yes Home medication list reviewed: Yes (stopped amlodipine; started Losartan 50 mg daily) Review of Systems Review of systems same as previous: Yes Physical Exam Vital signs obtained and entered by: RANDEE Carter MA Blood Pressure: 128/76 (LEFT ARM) Cuff size: regular Heart Rate: 86 O2 Saturation: 98 Height: 5 ft 5 in Weight: 182 lb 6.4 oz Body Mass Index: 30.3 BMI Classification: Obese Impression and Plan 1. Central Sleep Apnea-Hypopnea Syndrome with Ayad-Deal respiration, moderate, with lowest oxygen saturation of 84%. Obviously this is the cause of the patients symptoms of unrefreshed sleep, and excessive daytime sleepiness. Positive pressure therapy could benefit hypertension, atrial fibrillation and COPD. A manual titration study will be completed to find optimal treatment pressure. Patient is willing to go to [facility] since we cannot do a titration study here at this time. He was informed of needing a Covid test 72 hours prior to titration study. He voiced understanding. 2. Hypoxemia, mild, with a [place]eron oxygen saturation of 84% and 40.5 minutes spent under 90%. His baseline oxygen saturation was normal with an average oxygen saturation of 91%. 3. Atrial fibrillation noted during sleep study. Patient with history of atrial fibrillation. He was advised to continue follow-up with cardiology. * Titration study * Attempt to lose weight. * Return after titration study. Counseling Topics: Weight loss health impact Visit Type: In Office Time Spent with Patient (minutes): 21 Provider Statement: I spent 100% of the Face to Face Visit with the patient with greater than 50% spent counseling the patient and coordination of care.
[2022-05-18 15:39] VITALS: BP 128/76
== END 2022-05-18 15:03 | disposition home or self-care (01) ==
LOC: SC 15:02
PROVIDERS: ATTEND Nurse Practitioner Family
DX: G47.31 Primary central sleep apnea (principal); I48.91 Unspecified atrial fibrillation; R09.02 Hypoxemia; E66.9 Obesity, unspecified; Z68.30 Body mass index [BMI] 30.0-30.9, adult
CPT/HCPCS: 99213; G0463; 99212

== ENCOUNTER 2022-05-30 16:51 | Outpatient (CLI) | payer MEDICARE, OTHER | END 2022-05-30 16:52 | disposition home or self-care (01) | LOC: LAB 16:51 | PROVIDERS: ATTEND Nurse Practitioner Family | DX: Z79.01 Long term (current) use of anticoagulants (principal); I48.91 Unspecified atrial fibrillation | CPT/HCPCS: 36416; 85610 ==

== ENCOUNTER 2022-06-13 11:35 | Outpatient (CLI) | payer MEDICARE, OTHER | END 2022-06-13 11:36 | disposition home or self-care (01) | LOC: LAB 11:35 | PROVIDERS: ATTEND Nurse Practitioner Family | DX: Z79.01 Long term (current) use of anticoagulants (principal); I48.91 Unspecified atrial fibrillation | CPT/HCPCS: 36416; 85610 ==

== ENCOUNTER 2022-06-20 15:11 | Outpatient (CLI) | payer MEDICARE, OTHER | END 2022-06-20 15:12 | disposition home or self-care (01) | LOC: LAB 15:11 | PROVIDERS: ATTEND Nurse Practitioner Family | DX: Z79.01 Long term (current) use of anticoagulants (principal); I48.91 Unspecified atrial fibrillation | CPT/HCPCS: 36416; 85610 ==

== ENCOUNTER 2022-06-28 07:55 | Outpatient (CLI) | payer MEDICARE, OTHER | END 2022-06-28 07:56 | disposition home or self-care (01) | LOC: LAB 07:55 | PROVIDERS: ATTEND Nurse Practitioner Family | DX: Z79.01 Long term (current) use of anticoagulants (principal); I48.91 Unspecified atrial fibrillation | CPT/HCPCS: 36416; 85610 ==

== ENCOUNTER 2022-06-28 13:46 | Outpatient (CLI) | payer MEDICARE, OTHER ==
--- NOTE | 2022-06-28 14:32 | SLEEP CARE CONSULTATION ---
Information from patient questionnaire entered by Naomie Avina. I have reviewed and concur with the information entered by Naomie Avina. This document represents the service I personally performed and the decisions made by , Jeniffer Warren ARNP. History of Present Illness Service Date and Time: 06/28/2022 1346 Initial [place] Sleepiness Scale score: 5 (04/15/22) Current [place] Sleepiness Scale score: 1 (06/28/22) Additional HPI information: JEFF DANGELO retruns for follow up of the sleep study with a manual BIPAP titration study performed on 05/25/2022 at [facility]. The patient was informed of the following polysomnography findings: Patient was titrated up to BIPAP ST 28/18 cmH2O. The study states that "none of tested settings appeared adequate" during study and the study was non-diagnostic due to poor sleep efficiency. I spoke with Dr. Hernandez who interpreted the study and he recommended patient be started on a BIPAP ST with settings at 14/4 cmH2O with 10 respiratory rate support. Sleep Study - Results Type of Sleep Study: Polysomnography (COMPLETED 04/30/22 TIRATION STUDY DONE 05/25/22) Prior sleep studies: No Polysomnography/Home Sleep Study results: Impression: The quality of the study is good. CPAP was initiated at 5 cmH2O and titrated up to BiPAP ST at 25/18 cmH2O with a backup respiratory rate of 10. None of the testing settings appeared adequate. Oxygen saturation was mildly low. The residual respiratory events consisted of both obstructive and central apneas. The patient did not tolerate positive airway pressure therapy well. The patient's sleep efficiency was poor. The sleep architecture was abnormal for sleep fragmentation and lack of REM and slow-wave sleep. There was no periodic leg movement of sleep. Cardiac rhythm was atrial fibrillation. No abnormal behavior (parasomnia) observed during the night. Allergies and Home Medications Known drug allergies: Yes (as listed) Drug allergies reviewed: Yes Home medication list reviewed: Yes (losartan) Allergy and home medication list: Allergies felodipine [From Plendil] Allergy (Severe, Verified 05/18/22 15:07) Anaphylaxis azilsartan [From Edarbi] Allergy (Intermediate, Verified 05/18/22 15:07) Unknown morphine Allergy (Intermediate, Verified 05/18/22 15:07) Unknown Sulfa (Sulfonamide Antibiotics) Adverse Reaction (Mild, Verified 05/18/22 15:07) Itching hyperactivity Review of Systems Review of systems same as previous: Yes (no changes) Physical Exam Vital signs obtained and entered by: NAOMIE Carter MA Blood Pressure: 128/64 (LEFT ARM) Cuff size: regular Heart Rate: 77 O2 Saturation: 97 Height: 5 ft 5 in Weight: 187 lb Body Mass Index: 31.1 BMI Classification: Obese Impression and Plan 1. Central Sleep Apnea-Hypopnea Syndrome, moderate. Patient comes in today after completing titration study at [facility]. He had poor sleep efficiency affecting his study that night. I consulted with Dr. Hernandez, our medical assistant dermatology) and he advised that he be started on BIPAP ST therapy. The patient will be started on BIPAP ST therapy with pressure set at 14/4 cmH2O with 10 respiratory rate support. Compliance guidelines also reviewed. A copy of compliance guidelines will be given for reference at check out. He used a ResMed AirTouch full face mask during his sleep study. 2. Obesity, unspecified. Currently patients BMI is 31.1. Obesity increases the risk of apnea, CPAP pressure requirements and overall health risks especially cardiovascular and diabetes. Thus patient is advised to lose weight. * BIPAP ST therapy, pressure at 14/4 cm H2O with 10 respiratory rate support. * Attempt to lose weight. * Avoid alcohol consumption near bedtime. * Avoid supine sleep until using BIPAP. * The patient is again cautioned about driving until sleepiness completely re solves. * Return one month after BIPAP obtained. I will assess response to therapy and compliance at that time. Counseling Topics: Weight loss health impact Visit Type: In Office Time Spent with Patient (minutes): 22 Provider Statement: I spent 100% of the Face to Face Visit with the patient with greater than 50% spent counseling the patient and coordination of care.
[2022-06-28 14:59] VITALS: BP 128/64
== END 2022-06-28 13:47 | disposition home or self-care (01) ==
LOC: SC 13:46
PROVIDERS: ATTEND Nurse Practitioner Family
DX: G47.31 Primary central sleep apnea (principal); E66.9 Obesity, unspecified; Z68.31 Body mass index [BMI] 31.0-31.9, adult
CPT/HCPCS: 99213; G0463; 99212

== ENCOUNTER 2022-07-04 08:14 | Outpatient (CLI) | payer MEDICARE, OTHER | END 2022-07-04 08:15 | disposition home or self-care (01) | LOC: LAB 08:14 | PROVIDERS: ATTEND Nurse Practitioner Family | DX: Z79.01 Long term (current) use of anticoagulants (principal); I48.91 Unspecified atrial fibrillation | CPT/HCPCS: 85610 ==

== ENCOUNTER 2022-07-09 07:57 | Outpatient (CLI) | payer MEDICARE, OTHER | END 2022-07-09 07:58 | disposition home or self-care (01) | LOC: LAB 07:57 | PROVIDERS: ATTEND Nurse Practitioner Family | DX: Z79.01 Long term (current) use of anticoagulants (principal); I48.91 Unspecified atrial fibrillation | CPT/HCPCS: 36416; 85610 ==

== ENCOUNTER 2022-07-16 09:28 | Outpatient (CLI) | payer MEDICARE, OTHER | END 2022-07-16 09:29 | disposition home or self-care (01) | LOC: LAB 09:28 | PROVIDERS: ATTEND Nurse Practitioner Family | DX: Z79.01 Long term (current) use of anticoagulants (principal); I48.91 Unspecified atrial fibrillation | CPT/HCPCS: 36416; 85610 ==

== ENCOUNTER 2022-07-27 13:43 | Outpatient (CLI) | payer MEDICARE, OTHER | END 2022-07-27 13:44 | disposition home or self-care (01) | LOC: LAB 13:43 | PROVIDERS: ATTEND Nurse Practitioner Family | DX: Z79.01 Long term (current) use of anticoagulants (principal); I48.91 Unspecified atrial fibrillation | CPT/HCPCS: 36416; 85610 ==

== ENCOUNTER 2022-08-01 08:00 | Outpatient (CLI) | payer MEDICARE, OTHER | END 2022-08-01 23:59 | disposition home or self-care (01) | LOC: LAB.N 08:00 | PROVIDERS: ATTEND Nurse Practitioner Family | DX: I48.91 Unspecified atrial fibrillation (principal); Z79.01 Long term (current) use of anticoagulants ==

== ENCOUNTER 2022-08-08 10:23 | Outpatient (CLI) | payer MEDICARE, OTHER ==
[2022-08-08 10:51] LABS: BASOPHILS # (AUTO) 0.1 10^3/uL (0.0-0.1); BASOPHILS % (AUTO) 0.9 %; EOSINOPHILS # (AUTO) 0.1 10^3/uL (0.0-0.7); EOSINOPHILS % (AUTO) 2.5 %; HCT - HEMATOCRIT 51.6 % (42.0-52.0); HGB - HEMOGLOBIN 16.4 g/dL (14.0-18.0); LYMPHOCYTES # (AUTO) 1.2 10^3/uL (1.5-3.5); LYMPHOCYTES % (AUTO) 21.8 %; MEAN CORPUSCULAR HEMOGLOBIN 29.3 pg (27.0-31.0); MEAN CORPUSCULAR HGB CONC 31.8 g/dL (32.0-36.0); MEAN CORPUSCULAR VOLUME 92.3 fL (80.0-94.0); MEAN PLATELET VOLUME 10.8 fL (7.4-11.4); MONOCYTES # (AUTO) 0.4 10^3/uL (0.0-1.0); MONOCYTES % (AUTO) 7.4 %; NEUTROPHILS # (AUTO) 3.7 10^3/uL (1.5-6.6); NEUTROPHILS % (AUTO) 66.9 %; PLT - PLATELET COUNT 220 10^3/uL (130-450); RED BLOOD COUNT 5.59 10^6/uL (4.70-6.10); WHITE BLOOD COUNT 5.6 x10^3/uL (4.8-10.8)
[2022-08-08 11:08] LABS: ALBUMIN 4.2 g/dL (3.2-5.5); ALBUMIN/GLOBULIN RATIO 1.4 (1.0-2.2); ALKALINE PHOSPHATASE 55 IU/L (42-121); ALT ALANINE AMINOTRANSFERASE 57 IU/L (10-60); AST ASPARTATE AMINOTRANSFERASE 27 IU/L (10-42); BILIRUBIN,TOTAL 2.2 mg/dL (0.2-1.0); BUN - BLOOD UREA NITROGEN 20 mg/dL (6-20); CALCIUM 9.2 mg/dL (8.5-10.3); CARBON DIOXIDE - CO2 27 mmol/L (21-32); CHLORIDE 110 mmol/L (101-111); CHOL/HDL RATIO 3.3 (<5.0); CHOLESTEROL 158 mg/dL; GFR - MDRD 73 (>89); GLUCOSE 120 mg/dL (70-100); HDL CHOLESTEROL 48 mg/dL; LDL CHOLESTEROL,CALCULATED 92 mg/dL; LDL/HDL RATIO 1.9 (<3.6); POTASSIUM 4.1 mmol/L (3.5-5.0); SODIUM 143 mmol/L (135-145); TOTAL PROTEIN 7.3 g/dL (6.7-8.2); TRIGLYCERIDES 91 mg/dL; VLDL CHOLESTEROL 18 mg/dL
[2022-08-08 11:19] LABS: THYROID STIMULATING HORMONE 0.91 uIU/mL (0.34-5.60)
[2022-08-08 14:07] LABS: ESTIMATED AVERAGE GLUCOSE 117 mg/dL (70-100); HEMOGLOBIN A1c% 5.7 % (4.27-6.07)
== END 2022-08-08 10:24 | disposition home or self-care (01) ==
LOC: LAB 10:23
PROVIDERS: ATTEND Nurse Practitioner Family
DX: Z79.01 Long term (current) use of anticoagulants (principal); I48.91 Unspecified atrial fibrillation; E78.5 Hyperlipidemia, unspecified; I10 Essential (primary) hypertension; E66.9 Obesity, unspecified
CPT/HCPCS: 36415; 80053; 80061; 83036; 83721; 84443; 85025; 85610

== ENCOUNTER 2022-08-22 16:23 | Outpatient (CLI) | payer MEDICARE, OTHER ==
--- NOTE | 2022-08-22 16:18 | SLEEP CARE CONSULTATION ---
Information from patient questionnaire entered by Randee Avina. I have reviewed and concur with the information entered by Randee Avina. This document represents the service I personally performed and the decisions made by me, Jeniffer Warren ARNP. History of Present Illness Service Date and Time: 08/22/2022 1600 Previous diagnosis: Moderate, Central Sleep Apnea-Hypopnea Syndrome AHI: 25.7 (in 04/2022) Reason for follow up: first compliance Equipment type: BiPAP (RESMED AirCurve 10 ST) Equipment obtained from: Other ([facility]; got inital supplies) Mask style: Nasal pillows Mask brand: Resmed (AirFit P10) Backup mask available: No (will keep old mask when replaced) Last cushion change: 4 days ago Prior sleep studies: No Type of Sleep Study: Polysomnography (COMPLETED 04/30/22 TIRATION STUDY DONE 05/25/22) HPI additional information: JEFF DANGELO was diagnosed to have moderate, AHI 25.7, central sleep apnea- hypopnea syndrome and returns via telehealth visit today for BIPAP ST therapy fi rst compliance follow-up. Sleep Study - Results Type of Sleep Study: Polysomnography (COMPLETED 04/30/22 TIRATION STUDY DONE 05/25/22) Prior sleep studies: No CPAP Compliance Data - Data Reviewed with Patient Average duration of nightly device use: 4 hours 39 minutes Compliance rate %: 60 (2430 days used) Current pressure setting (cmH2O): 14/4 Average residual AHI: 16.9 Obstructive apnea: 3.4 Hypopnea: 13.5 Average large leak: 22.9 L/min Subjective Missed days of use due to: reports: other (had ablation surgery) Patient concerns: reports: dry mouth, nose, throat (occasional if mouth comes open). denies: aerophagia, mask discomfort, air blowing in eyes, mask leak noise, condensation in mask/hose, nasal congestion, epistaxis Observed to snore while using device: No Current pressure setting perceived as: too low On therapy, patient: reports: other (not feeling more rested overall or getting better sleep). denies: drowsiness while driving Initial [place] Sleepiness Scale score: 5 (04/15/22) Current [place] Sleepiness Scale score: 5 Allergies and Home Medications Known drug allergies: Yes (as listed) Drug allergies reviewed: Yes Home medication list reviewed: Yes (no changes) Allergy and home medication list: Allergies felodipine [From Plendil] Allergy (Severe, Verified 08/21/22 22:16) Anaphylaxis azilsartan [From Edarbi] Allergy (Intermediate, Verified 08/21/22 22:16) Unknown morphine Allergy (Intermediate, Verified 08/21/22 22:16) Unknown Sulfa (Sulfonamide Antibiotics) Adverse Reaction (Mild, Verified 08/21/22 22:16) Itching hyperactivity Review of Systems Review of systems same as previous: No (Ablation for Afib; stress test (still having some afib)) Physical Exam Vital signs obtained and entered by: Jeniffer Celis NP Height: 5 ft 5 in Weight: 180 lb (per pt) Body Mass Index: 29.9 BMI Classification: Overweight Impression and Plan 1. Central Sleep Apnea-Hypopnea Syndrome, moderate, with fair treatment compliance and fair apnea control. He does not feel he is sleeping better or is more rested. He feels his sleep if more broken and he is taking some naps to compensate. He is trying to use the BiPAP but feels the pressure may be too high when he exhales. I explained that it is at the lowest pressure and he voiced understanding. The patients pressure will be changed to BIPAP 16/4 cmH20 for elevation of residual AHI. Patient advised to contact me if pressure change is uncomfortable so that it can be adjusted. Goals for apnea control discussed. Patient's apnea severity and rationale for treatment to reduce apnea, improve sleep quality and reduce cardiovascular and cerebrovascular events was reviewed. I also reviewed the benefit of consistent device use of BIPAP for hypertension, arrhythmia and COPD. 2. Obesity, unspecified. Currently patients BMI is 29.9. Obesity increases the risk of apnea,BIPAP pressure requirements and overall health risks especially cardiovascular and diabetes. Thus patient is advised to lose weight. * Change BIPAP pressure to 16/4 cmH2O * Notify me if snoring with mask or feeling that the pressure is too much or too little * Attempt to lose weight * Call this office if any problems using BIPAP * Return for follow up in 1-2 months, or sooner if concerns arise Counseling Topics: Spare mask, Weight loss health impact Visit Type: Telehealth Phone Video Type: Doximity Patient Location: Home Location of Provider: Office Patient agrees and consents to this telehealth visit type: Yes Patient agrees to have their insurance billed: Yes Time Spent with Patient (minutes): 22 Provider Statement: I spent 100% of the Telehealth Phone Call with the patient with greater than 50% spent counseling the patient and coordination of care.
== END 2022-08-22 16:24 | disposition home or self-care (01) ==
LOC: SC 16:23
PROVIDERS: ATTEND Nurse Practitioner Family
DX: G47.31 Primary central sleep apnea (principal); E66.9 Obesity, unspecified; Z68.29 Body mass index [BMI] 29.0-29.9, adult

== ENCOUNTER 2022-09-04 08:34 | Outpatient (CLI) | payer MEDICARE, OTHER | END 2022-09-04 08:35 | disposition home or self-care (01) | LOC: LAB 08:34 | PROVIDERS: ATTEND Nurse Practitioner Family | DX: Z79.01 Long term (current) use of anticoagulants (principal); I48.91 Unspecified atrial fibrillation | CPT/HCPCS: 36416; 85610 ==

== ENCOUNTER 2022-09-12 08:10 | Outpatient (CLI) | payer MEDICARE, OTHER | END 2022-09-12 08:11 | disposition home or self-care (01) | LOC: LAB 08:10 | PROVIDERS: ATTEND Nurse Practitioner Family | DX: Z79.01 Long term (current) use of anticoagulants (principal); I48.91 Unspecified atrial fibrillation | CPT/HCPCS: 36416; 85610 ==

== ENCOUNTER 2022-09-17 08:18 | Outpatient (CLI) | payer MEDICARE, OTHER | END 2022-09-17 08:19 | disposition home or self-care (01) | LOC: LAB 08:18 | PROVIDERS: ATTEND Nurse Practitioner Family | DX: Z79.01 Long term (current) use of anticoagulants (principal); I48.91 Unspecified atrial fibrillation | CPT/HCPCS: 36416; 85610 ==

== ENCOUNTER 2022-10-18 07:59 | Outpatient (CLI) | payer MEDICARE, OTHER | END 2022-10-18 08:00 | disposition home or self-care (01) | LOC: LAB 07:59 | PROVIDERS: ATTEND Nurse Practitioner Family | DX: Z79.01 Long term (current) use of anticoagulants (principal); I48.91 Unspecified atrial fibrillation | CPT/HCPCS: 36416; 85610 ==

== ENCOUNTER 2022-11-22 08:11 | Outpatient (CLI) | payer MEDICARE, OTHER | END 2022-11-22 08:12 | disposition home or self-care (01) | LOC: LAB 08:11 | PROVIDERS: ATTEND Nurse Practitioner Family | DX: Z79.01 Long term (current) use of anticoagulants (principal); I48.91 Unspecified atrial fibrillation | CPT/HCPCS: 36416; 85610 ==

== ENCOUNTER 2022-12-28 09:14 | Outpatient (CLI) | payer MEDICARE, OTHER ==
--- NOTE | 2022-12-28 09:12 | SLEEP CARE CONSULTATION ---
Information from patient questionnaire entered by Randee Avina. I have reviewed and concur with the information entered by Randee Avina. This document represents the service I personally performed and the decisions made by me, Jeniffer Warren ARNP. History of Present Illness Service Date and Time: 12/28/2022 0900 Previous diagnosis: Moderate, Central Sleep Apnea-Hypopnea Syndrome AHI: 25.7 (04/2022) Reason for follow up: other (3 MONTH F/U) Equipment type: BiPAP (ResMed AirCurve 10 ST) Equipment obtained from: Other ([facility]; getting supplies) Mask style: Nasal pillows Mask brand: Resmed (P10) Backup mask available: Yes (old mask) Last cushion change: 2-4 weeks Prior sleep studies: No Type of Sleep Study: Polysomnography (COMPLETED 04/30/22 TIRATION STUDY DONE 05/25/22) HPI additional information: JEFF DANGELO was diagnosed to have moderate, AHI 25.7, central sleep apnea- hypopnea syndrome and returns via telehealth visit today for BIPAP therapy three month follow-up. Sleep Study - Results Type of Sleep Study: Polysomnography (COMPLETED 04/30/22 TIRATION STUDY DONE 05/25/22) Prior sleep studies: No CPAP Compliance Data - Data Reviewed with Patient Average duration of nightly device use: 7 HRS 42 MINS Compliance rate %: 99 (09/28/22-12/26/22; 89/90 days used) Current pressure setting (cmH2O): 16/4 Average residual AHI: 1.2 Average large leak: 28 L/min Subjective Patient concerns: reports: mask leak noise, nasal congestion (not congestion with PAP). denies: aerophagia, mask discomfort, air blowing in eyes, condensation in mask/hose, dry mouth, nose, throat, epistaxis Observed to snore while using device: No Current pressure setting perceived as: comfortable On therapy, patient: reports: other (has never really had issues with feeling rested). denies: drowsiness while driving Initial [place] Sleepiness Scale score: 5 (04/15/22) Current [place] Sleepiness Scale score: 3 (12/28/22) Allergies and Home Medications Known drug allergies: Yes (as listed) Drug allergies reviewed: Yes Home medication list reviewed: Yes (no changes) Allergy and home medication list: Allergies felodipine [From Plendil] Allergy (Severe, Verified 12/27/22 12:31) Anaphylaxis azilsartan [From Edarbi] Allergy (Intermediate, Verified 12/27/22 12:31) Unknown morphine Allergy (Intermediate, Verified 12/27/22 12:31) Unknown Sulfa (Sulfonamide Antibiotics) Adverse Reaction (Mild, Verified 12/27/22 12:31) Itching hyperactivity Review of Systems Review of systems same as previous: No (CARDIO VERSION; usha cataract surgery) Physical Exam Vital signs obtained and entered by: RANDEE Carter MA Height: 5 ft 5 in (PER PT) Weight: 180 lb (PER PT) Body Mass Index: 29.9 BMI Classification: Overweight Impression and Plan 1. Central Sleep Apnea-Hypopnea Syndrome, moderate, with good treatment compliance and good apnea control. Patient has significant improvement of their sleep apnea and is satisfied with current CPAP therapy. Patient denies problems with oral dryness, nasal congestion, epistaxis, skin irritation or aerophagia. Patient's apnea severity and rationale for treatment to reduce apnea, improve sleep quality and reduce cardiovascular and cerebrovascular events was reviewed. I also reviewed the benefit of consistent device use of BIPAP for hypertension, arrhythmia and COPD. 2. Overweight, unspecified. Currently patients BMI is 29.9. Obesity increases the risk of apnea, BIPAP pressure requirements and overall health risks especially cardiovascular and diabetes. Thus patient is advised to lose weight. * Continue BIPAP pressure at 16/4 cmH2O * Notify me if snoring with mask or feeling that the pressure is too much or too little * Attempt to lose weight * Call this office if any problems using BIPAP * Return for follow up in 12 months, or sooner if concerns arise Counseling Topics: Weight loss health impact Follow up with Sleep Care in: 1 year Visit Type: Telehealth Phone Video Type: DoxodalisTrackBill Patient Location: Home Location of Provider: Office Patient agrees and consents to this telehealth visit type: Yes Patient agrees to have their insurance billed: Yes Time Spent with Patient (minutes): 20 Provider Statement: I spent 100% of the Telehealth Phone Call with the patient with greater than 50% spent counseling the patient and coordination of care.
== END 2022-12-28 09:15 | disposition home or self-care (01) ==
LOC: SC 09:14
PROVIDERS: ATTEND Nurse Practitioner Family
DX: G47.33 Obstructive sleep apnea (adult) (pediatric) (principal); E66.3 Overweight; Z68.29 Body mass index [BMI] 29.0-29.9, adult

== ENCOUNTER 2023-01-15 08:19 | Outpatient (CLI) | payer MEDICARE, OTHER | END 2023-01-15 08:20 | disposition home or self-care (01) | LOC: LAB 08:19 | PROVIDERS: ATTEND Nurse Practitioner Family | DX: Z79.01 Long term (current) use of anticoagulants (principal); I48.91 Unspecified atrial fibrillation | CPT/HCPCS: 36416; 85610 ==

== ENCOUNTER 2023-01-29 09:27 | Outpatient (CLI) | payer MEDICARE, OTHER | END 2023-01-29 09:28 | disposition home or self-care (01) | LOC: LAB 09:27 | PROVIDERS: ATTEND Nurse Practitioner Family | DX: Z79.01 Long term (current) use of anticoagulants (principal); I48.91 Unspecified atrial fibrillation | CPT/HCPCS: 36416; 85610 ==

== ENCOUNTER 2023-02-12 13:21 | Outpatient (CLI) | payer MEDICARE, OTHER | END 2023-02-12 13:22 | disposition home or self-care (01) | LOC: LAB 13:21 | PROVIDERS: ATTEND Nurse Practitioner Family | DX: Z79.01 Long term (current) use of anticoagulants (principal); I48.91 Unspecified atrial fibrillation | CPT/HCPCS: 36416; 85610 ==